=== PATIENT | female | born 1955 | race Caucasian/White ===

== ENCOUNTER → 2020-08-26 09:47 | Outpatient (BNVA) | payer MEDICARE, SELFPAY | PROVIDERS: PCP Family Medicine; Visit Provider Family Medicine | DX: E03.9 Hypothyroidism, unspecified (principal); Z13.6 Encounter for screening for cardiovascular disorders; Z68.1 Body mass index [BMI] 19.9 or less, adult | CPT/HCPCS: 80053; 80061; 84439; 84443; 85025 ==

== ENCOUNTER → 2020-08-28 12:40 | Outpatient (BNVA) | payer MEDICARE, SELFPAY | PROVIDERS: PCP Family Medicine; Visit Provider Family Medicine | DX: R53.1 Weakness (principal) | CPT/HCPCS: 82607 ==

== ENCOUNTER → 2020-10-14 14:51 | Outpatient (BNVA) | payer MEDICARE, SELFPAY | PROVIDERS: PCP Family Medicine; Visit Provider Family Medicine | DX: Z01.419 Encounter for gynecological examination (general) (routine) without abnormal findings (principal) | CPT/HCPCS: 88175 ==

== ENCOUNTER → 2020-12-05 15:43 | Outpatient (BNVA) | payer MEDICARE, SELFPAY | PROVIDERS: PCP Family Medicine; Visit Provider Family Medicine | DX: E03.9 Hypothyroidism, unspecified (principal); Z13.6 Encounter for screening for cardiovascular disorders; R60.9 Edema, unspecified | CPT/HCPCS: 80053; 84439; 84443 ==

== ENCOUNTER → 2020-12-08 14:12 | Outpatient (BNVA) | payer MEDICARE, SELFPAY | PROVIDERS: PCP Family Medicine; Visit Provider Family Medicine | DX: R74.8 Abnormal levels of other serum enzymes (principal) | CPT/HCPCS: 80074 ==

== ENCOUNTER 2021-01-20 10:44 | Outpatient (CLI) | payer MEDICARE, SELFPAY ==
--- NOTE | 2021-01-20 11:00 | US_ITS ---
WS: [id number] RIGHT UPPER QUADRANT ULTRASOUND HISTORY: elevated liver enzymes COMPARISON: None available. Liver: 14.6 cm in length. Normal size liver with mild diffuse coarse echotexture. No mass or bile seth t dilatation. There are a few scattered calcifications within the liver. Portal Vein: Normal monophasic hepatopedal flow. Gallbladder: Normally distended gallbladder with no stones or wall thickening. CBD: 0.4 cm Pancreas: Normal size and echogenicity. Right kidney: 10.2 cm in length. Normal size and echogenicity. No hydronephrosis or mass. Aorta and IVC: Unremarkable abdominal aorta and IVC. No ascites. US/US abdomen limited [id number] IMPRESSION: 1. Normal gallbladder. 2. Mild coarsened echotexture throughout the liver. Correlate for possible cir rhosis with hepatic steatosis. 3. Very tiny amount of perihepatic fluid.
== END 2021-01-20 10:45 | disposition home or self-care (01) ==
LOC: RAD 10:49
PROVIDERS: PCP Family Medicine; Visit Provider Family Medicine
DX: R60.9 Edema, unspecified (principal); R89.9 Unspecified abnormal finding in specimens from other organs, systems and tissues; R74.8 Abnormal levels of other serum enzymes; E03.9 Hypothyroidism, unspecified
CPT/HCPCS: 76705; 84436; 84443

== ENCOUNTER → 2021-01-21 13:01 | Outpatient (BNVA) | payer MEDICARE, SELFPAY | PROVIDERS: PCP Family Medicine; Visit Provider Family Medicine | DX: E03.9 Hypothyroidism, unspecified (principal) | CPT/HCPCS: 84439 ==

== ENCOUNTER 2021-03-06 11:12 | Day surgery (SDC) | payer MEDICARE, SELFPAY ==
[2021-03-04 13:48] VITALS: BMI 18.4
[2021-03-06] VITALS (7 sets, daily range): BP systolic 125–164; BP diastolic 66–89; PULSE 54–78; RESP 12–19; TEMP 36.6; O2SAT 100
[2021-03-06] MEDS: sodium chloride 0.9% 1,000 ML 30 ML IV (11:46)
[2021-03-06 12:09] LABS: INR 0.96 (0.8-1.2)
--- NOTE | 2021-03-06 12:30 | US_ITS ---
WS: [id number] ULTRASOUND GUIDED BIOPSY LIVER HISTORY: abnormal US of Liver, elevated LFTs. Procedure, risks, and complications are explained to the patient. Consent was obtained. Skin is clean sed with ChloraPrep and anesthetized with 1% buffered lidocaine. No mass is identified on today's imaging study. Random liver biopsy is requested. There is no hepatic mass identified. Conscious sedation utilized during this examination. Under sterile conditions axis is achieved into t he RIGHT lobe of the liver using an 18-gauge Achieve needle. 2 biopsies are performed. Specimen is pl aced in formalin for pathology. No complications were encountered. Patient will be observed for 2 funmi rs postprocedure for complications. US/US biopsy liver [id number] IMPRESSION: Uncomplicated random liver biopsy.
[2021-03-06] MEDS: fentaNYL 50 mcg/mL INJ 2mL 25 MCG IVP (12:50)
[2021-03-06] MEDS: midazolam 1 mg/mL INJ 2 mL IVP (12:50)
== END 2021-03-06 15:08 | disposition home or self-care (01) ==
PROVIDERS: PCP Family Medicine; Visit Provider Radiology Diagnostic Radiology
DX: R93.2 Abnormal findings on diagnostic imaging of liver and biliary tract (principal)
CPT/HCPCS: 36415; 47000; 76942; 82105; 82378; 83615; 85610; 88307; 88313; 96375; J2250; J3010; J7030

== ENCOUNTER → 2021-03-31 14:24 | Outpatient (BNVA) | payer MEDICARE, SELFPAY | PROVIDERS: PCP Family Medicine; Visit Provider Family Medicine | DX: R79.89 Other specified abnormal findings of blood chemistry (principal); D50.9 Iron deficiency anemia, unspecified; Z12.11 Encounter for screening for malignant neoplasm of colon | CPT/HCPCS: 80053; 82728; 84466 ==

== ENCOUNTER 2021-05-25 13:10 | Outpatient (CLI) | payer MEDICARE, SELFPAY ==
[2021-05-25 14:00] LABS: Lactate Dehydrogenase 199 U/L (135-214)
[2021-05-25 14:09] LABS: Cancer Antigen 19 9 22.67 U/mL (0-35)
[2021-05-25 21:22] LABS: Carcinoembryonic Antigen 2.7 ng/mL (0.0-4.7); Tumor Marker Alpha Fetoprotein 2.7 ng/mL (0-8.3)
== END 2021-05-25 13:11 | disposition home or self-care (01) ==
PROVIDERS: PCP Family Medicine; Visit Provider Family Medicine
DX: R79.89 Other specified abnormal findings of blood chemistry (principal)
CPT/HCPCS: 82105; 82378; 83615; 86301

== ENCOUNTER → 2021-06-02 14:25 | Outpatient (BNVA) | payer MEDICARE, SELFPAY | PROVIDERS: PCP Family Medicine; Visit Provider Surgery | DX: Z12.11 Encounter for screening for malignant neoplasm of colon (principal) ==

== ENCOUNTER 2021-07-22 05:47 | Day surgery (SDC) | payer MEDICARE, SELFPAY ==
[2021-07-20 10:06] VITALS: BMI 17.7
[2021-07-22 06:08] VITALS: BP 146/92; PULSE 67; RESP 18; TEMP 36.7; O2SAT 100
[2021-07-22] MEDS: sodium chloride 0.9% 1,000 ML 30 ML IV (06:29)
--- NOTE | 2021-07-22 06:57 | ANES.PREANE2 ---
Documented by User: Valentin Marks Jr, CIT[employer] ADMINISTRATOR 07/22/21 07:01 Pre-Anesthetic Assessment Height/Weight: Height 1.7 m Weight 54.431 kg Temp Pulse Resp BP Pulse Ox 98.0 F 67 18 146/92 100 07/22/21 06:08 07/22/21 06:08 07/22/21 06:08 07/22/21 06:08 07/22/21 06:08 Preop Diagnosis: diagnostic Operation Date: 07/22/21 07:30 Proposed Procedures p Colonoscopy 46894/screening for mal remedios of colon Z12.11(Not Applicable) - Vasquez Jackson MD Familial anesthetic complications: none Was Beta Keturah taken within 24 hours: N/A Was Clonidine taken within 24 hours: N/A Last intake: Intake Last Liquid Date 07/21/21 Last Liquid Time 18:00 Last Solid Date 07/21/21 Last Solid Time 07:00 Social No alcohol and No tobacco Exam alert, oriented x 3, clear to auscultation bilaterally and regular rate & rhythm Airway Submandibular: within normal limits Cervical ROM: within normal limits Mallampati: Class I Dentition: full Pulmonary None reported CV/HEM None reported None reported Hepatic None reported GI Gastroesophageal Reflux Disease (occ OTC meds. Food related) Metabolic Thyroid Disease Musc/skel Lower Back Pain Neuropsych None reported Anesthetic Plan ASA status: 1 Anesthesia: MAC Medications/Allergies Home Medications Medication Instructions Recorded Confirmed Last Taken Type prednisone 20 mg tablet 20 mg PO DAILY #4 tab 07/20/21 07/22/21 Unknown Rx levothyroxine 125 mcg tablet 125 mcg PO DAILY 90 Days #90 tab 07/21/21 07/22/21 Unknown Rx Allergies Allergy/AdvReac Type Severity Reaction Status Date / Time No Known Allergies Allergy Verified 07/20/21 14:13 Current Medications Generic Name Dose Route Start Last Admin Trade Name Freq PRN Reason Stop Dose Admin Sodium Chloride 1,000 mls @ 30 mls/hr 07/22/21 06:00 07/22/21 06:29 Sodium Chloride 0.9% IV 07/23/21 05:59 30 mls/hr .Q24H VIKAS Administration PFSH Anesthesia Medical History (Updated 07/20/21 @ 14:32 by Manuel Urbina DO) Acquired hypothyroidism Surgical History (Updated 07/22/21 @ 07:54 by Vasquez Jackson MD) Status post colonoscopy (07/22/21) Family History Family/Other Cancer Mother Cataract Social History Smoking and tobacco status: former smoker Second hand smoke exposure: No Alcohol intake: never Desire information about alcohol rehabilitation?: No Desire information about substance/drug rehabilitation?: No Data Anesthesia Cardiac Studies: No Data to Display Documented by User: Eleanor Levi DO 07/22/21 09:12 Pre-Anesthetic Assessment Other Pertinent Information Supervision by Doctor Kady Medications/Allergies Home Medications Medication Instructions Recorded Confirmed Last Taken Type prednisone 20 mg tablet 20 mg PO DAILY #4 tab 07/20/21 07/22/21 Unknown Rx levothyroxine 125 mcg tablet 125 mcg PO DAILY 90 Days #90 tab 07/21/21 07/22/21 Unknown Rx Allergies Allergy/AdvReac Type Severity Reaction Status Date / Time No Known Allergies Allergy Verified 07/20/21 14:13 [facility] Anesthesia Medical History (Updated 07/20/21 @ 14:32 by Manuel Urbina DO) Acquired hypothyroidism Surgical History (Updated 07/22/21 @ 07:54 by Vasquez Jackson MD) Status post colonoscopy (07/22/21) Family History Family/Other Cancer Mother Cataract Social History Smoking and tobacco status: former smoker Second hand smoke exposure: No Alcohol intake: never Desire information about alcohol rehabilitation?: No Desire information about substance/drug rehabilitation?: No Data Anesthesia Cardiac Studies: No Data to Display
--- NOTE | 2021-07-22 07:06 | W.PM.OPSFHP ---
Same Day Surgery H&P Indication for Procedure/HPI DATE OF PROCEDURE: July 22, 2021 CHIEF COMPLAINT/INDICATIONFOR SURGICAL PROCEDURE: colonoscopy PREOP DIAGNOSIS: diagnostic PLANNED PROCEDURE: Operation Date: 07/22/21 07:30 Proposed Procedures p Colonoscopy 92129/screening for mal remedios of colon Z12.11(Not Applicable) - Vasquez Jackson MD Medications/Allergies* Allergies/Adverse Reactions Allergy/AdvReac Type Severity Reaction Status Date / Time No Known Allergies Allergy Verified 07/20/21 14:13 Current Medications: Generic Name Dose Route Start Last Admin Trade Name Freq PRN Reason Stop Dose Admin Sodium Chloride 1,000 mls @ 30 mls/hr 07/22/21 06:00 07/22/21 06:29 Sodium Chloride 0.9% IV 07/23/21 05:59 30 mls/hr .Q24H VIKAS Administration Pertinent History/Comorbid Conditions* Medical History (Updated 07/20/21 @ 14:32 by Manuel Urbina DO) Acquired hypothyroidism Family History (Updated 08/26/20 @ 09:20 by Lawrence Purvis LPN) Cancer Family/Other Cataract Mother Social History Smoking and tobacco status: former smoker Second hand smoke exposure: No Alcohol intake: never Desire information about alcohol rehabilitation?: No Desire information about substance/drug rehabilitation?: No Pertinent Exam Findings alert, oriented x 3 and regular rate & rhythm Recommendations Surgery/Procedure today Coding Level of Care Code Acute Sample Patternmaker for Abiola Nichols
[2021-07-22 07:54] VITALS: BP 110/69; PULSE 59; RESP 16; TEMP 36.2; O2SAT 100
[2021-07-22 08:04] VITALS: BP 105/66; PULSE 64; RESP 18; O2SAT 99
--- NOTE | 2021-07-22 13:18 | PM.PACU ---
PACU note Narrative: VSS; no issues post procedure.
== END 2021-07-22 08:17 | disposition home or self-care (01) ==
PROVIDERS: PCP Family Medicine; Visit Provider Surgery
PROC: 0DJD8ZZ Inspection of Lower Intestinal Tract, Via Natural or Artificial Opening Endoscopic (ICD-10-PCS; CPT 45378; principal; 2021-07-22 07:30)
DX: Z12.11 Encounter for screening for malignant neoplasm of colon (principal); E03.9 Hypothyroidism, unspecified; Z87.891 Personal history of nicotine dependence
CPT/HCPCS: G0121; J2704; J7030

== ENCOUNTER → 2021-09-04 12:29 | Outpatient (BNVA) | payer MEDICARE, SELFPAY | PROVIDERS: PCP Family Medicine; Visit Provider Family Medicine | DX: E03.9 Hypothyroidism, unspecified (principal); R60.9 Edema, unspecified; R79.89 Other specified abnormal findings of blood chemistry | CPT/HCPCS: 80053; 80061; 84439; 84443; 85025 ==

== ENCOUNTER 2021-09-08 09:05 | Outpatient (CLI) | payer MEDICARE, SELFPAY ==
[2021-09-08 10:13] LABS: Ferritin 10 ng/mL (15-150); Iron 26 ug/dL (37-145); Percent Saturation 7.3 % (20-50); Total Iron Binding Capacity 354 mcg/dl; Unsaturated Iron Binding 328 ug/dL (112-347)
[2021-09-08 10:23] LABS: LAB Peripheral Smear Sent for Review
== END 2021-09-08 09:06 | disposition home or self-care (01) ==
LOC: LAB 09:12
PROVIDERS: PCP Family Medicine; Visit Provider Family Medicine
DX: D50.9 Iron deficiency anemia, unspecified (principal); G25.81 Restless legs syndrome; D70.9 Neutropenia, unspecified
CPT/HCPCS: 36415; 82728; 83540; 83550

== ENCOUNTER 2021-10-12 06:17 | Outpatient (CLI) | payer MEDICARE, SELFPAY ==
--- NOTE | 2021-10-12 07:00 | US_ITS ---
WS: [id number] Complete ABDOMINAL ULTRASOUND HISTORY: anemia COMPARISON: 01/20/2021 Liver: 15.6 cm in length. Liver is normal size. Coarse echotexture throughout the liver. Surface of t he liver is very mildly nodular. There are several small cysts which are benign throughout the liver. No solid mass. Largest cyst measures 12 x 16 x 10 mm. No bile duct dilatation. Normal portal vein. Portal Vein: Patent hepatopedal flow remains normal. Decreasing undulations within the waveform. Gallbladder: Normally distended with no gallstones, wall thickening or pericholecystic fluid. Gallbladder wall thickness: 0.2 cm. Pancreas: Normal size and echogenicity. CBD: 0.2 cm. Right kidney: 9.7 cm x 4.2 cm x 5.7 cm. No mass, cortical thickening or hydronephrosis. Left kidney: 10.6 cm x 4.7 cm x 4.6 cm. No mass, cortical thickening or hydronephrosis. Spleen: Normal size and echogenicity. Abdominal aorta and IVC are within normal limits. No ascites. US/US abdomen complete* [id number] IMPRESSION: 1. Cirrhotic appearing liver with hepatic cysts. No solid mass. 2. Normal gallbladder. 3. No biliary duct dilatation. 4. Normal size spleen.
== END 2021-10-12 06:18 | disposition home or self-care (01) ==
LOC: RAD 06:18
PROVIDERS: PCP Family Medicine; Visit Provider Family Medicine
DX: D64.9 Anemia, unspecified
CPT/HCPCS: 76700

== ENCOUNTER 2021-10-21 11:21 | Oncology outpatient (recurring) (ONCR) | payer MEDICARE, SELFPAY ==
[2021-10-21 12:26] LABS: Basophils % 0.7 %; Hematocrit 42.3 % (37.0-47.0); Lymphocytes # 1.7 10^3/uL (0.8-4.8); Lymphocytes % 54.7 %; Mean Corpuscular HGB Conc 30.7 g/dL (30.0-36.0); Mean Corpuscular Hemoglobin 27.9 pg (28.0-34.0); Mean Corpuscular Volume 90.8 fl (81-99); Mean Platelet Volume 9.4 fL (7.4-10.4); Monocytes # 0.2 10^3/uL (0.2-0.9); Monocytes % 7.2 %; Neutrophils # 1.15 10^3/uL (1.8-7.7); Neutrophils % 37.4 %; Nucleated Red Blood Cells % 0 %; Platelet Count 406 10^3/cmm (130-400); Red Blood Count 4.66 10^6/uL (4.1-5.3); Red Cell Distribution Width 19.5 % (12.1-15.1); White Blood Count 3.1 10^3/uL (4.0-10.0)
== END 2021-11-13 23:59 | disposition home or self-care (01) ==
PROVIDERS: PCP Family Medicine; Visit Provider Internal Medicine Hematology & Oncology
DX: D61.818 Other pancytopenia (principal); D75.839 Thrombocytosis, unspecified; D50.9 Iron deficiency anemia, unspecified; Z79.899 Other long term (current) drug therapy
CPT/HCPCS: 36415; 85025; 99204

== ENCOUNTER → 2021-11-18 08:01 | Outpatient (BNVA) | payer MEDICARE, SELFPAY | PROVIDERS: PCP Family Medicine; Visit Provider Surgery | DX: D50.9 Iron deficiency anemia, unspecified (principal) | CPT/HCPCS: 99213 ==

== ENCOUNTER 2021-11-19 08:00 | Oncology outpatient (recurring) (ONCR) | payer MEDICARE, SELFPAY ==
[2021-11-19 08:31] LABS: Basophils % 0.6 %; Eosinophils % 0.6 %; Hematocrit 37.2 % (37.0-47.0); Hemoglobin 11.7 g/dL (11.5-15.3); Lymphocytes # 1.1 10^3/uL (0.8-4.8); Lymphocytes % 35.7 %; Mean Corpuscular HGB Conc 31.5 g/dL (30.0-36.0); Mean Corpuscular Hemoglobin 29.4 pg (28.0-34.0); Mean Corpuscular Volume 93.5 fl (81-99); Mean Platelet Volume 9.4 fL (7.4-10.4); Monocytes # 0.3 10^3/uL (0.2-0.9); Monocytes % 8.9 %; Neutrophils % 54.2 %; Nucleated Red Blood Cells % 0 %; Platelet Count 340 10^3/cmm (130-400); Red Blood Count 3.98 10^6/uL (4.1-5.3); Red Cell Distribution Width 17.9 % (12.1-15.1); White Blood Count 3.1 10^3/uL (4.0-10.0)
[2021-11-19 09:02] LABS: Ferritin 35 ng/mL (15-150); Iron 70 ug/dL (37-145); Total Iron Binding Capacity 250 mcg/dl; Unsaturated Iron Binding 180 ug/dL (112-347)
[2021-11-19 09:32] LABS: Vitamin B12 > 2000 pg/mL (232-1245)
== END 2021-12-14 23:59 | disposition home or self-care (01) ==
PROVIDERS: PCP Family Medicine; Visit Provider Internal Medicine Hematology & Oncology
DX: D61.818 Other pancytopenia (principal); D75.839 Thrombocytosis, unspecified; D50.9 Iron deficiency anemia, unspecified; Z79.899 Other long term (current) drug therapy
CPT/HCPCS: 82607; 82728; 83540; 83550; 85025; 99214

== ENCOUNTER 2021-11-27 06:09 | Day surgery (SDC) | payer MEDICARE, SELFPAY ==
[2021-11-24 12:16] VITALS: BMI 18.4
--- NOTE | 2021-11-27 06:26 | W.PM.OPSUD ---
Surgery/Procedure H&P Update DATE OF PROCEDURE: November 27, 2021 DATE H&P PERFORMED: 11/18/21 H&P UPDATE INFORMATION: I have reviewed H&P completed within last 30 days, I have examined patient prior to procedure and No changes to prior documentation PREOP DIAGNOSIS: Iron deficiency anemia PRIMARY INDICATION FOR PROCEDURE: The same PLANNED PROCEDURE: Operation Date: 11/27/21 07:30 Proposed Procedures p EGD 85311 D50.90(Not Applicable) - Redd Masterson MD
[2021-11-27 06:35] VITALS: BP 158/87; PULSE 64; RESP 18; TEMP 36.3; O2SAT 100
[2021-11-27] MEDS: sodium chloride 0.9% 1,000 ML 30 ML IV (06:45)
--- NOTE | 2021-11-27 07:11 | ANES.PREANE2 ---
Pre-Anesthetic Assessment Height/Weight: Height 1.75 m Weight 56.699 kg Temp Pulse Resp BP Pulse Ox O2 Del Method 97.4 F L 64 18 158/87 100 11/27/21 06:35 11/27/21 06:35 11/27/21 06:35 11/27/21 06:35 11/27/21 06:35 11/27/21 06:35 Preop Diagnosis: Iron deficiency anemia Operation Date: 11/27/21 07:30 Proposed Procedures p EGD 68447 D50.90(Not Applicable) - Redd Masterson MD Was Beta Keturah taken within 24 hours: N/A Was Clonidine taken within 24 hours: N/A Last intake: Intake Last Liquid Date 11/26/21 Last Liquid Time 22:00 Last Solid Date 11/26/21 Last Solid Time 22:00 Social No alcohol and No tobacco Exam alert, oriented x 3, clear to auscultation bilaterally and regular rate & rhythm Airway Submandibular: within normal limits Cervical ROM: within normal limits Mallampati: Class II Dentition: full History/ROS No significant history except as noted and No significant complaints Pulmonary None reported CV/HEM Anemia None reported Hepatic None reported GI None reported Metabolic Thyroid Disease [facility] None reported Neuropsych None reported Anesthetic Plan ASA status: 2 Anesthesia: Anesthesia Evaluation and MAC Risk of > 500 ml blood loss (7ml/kg in children): No Medications/Allergies Home Medications Medication Instructions Recorded Confirmed Last Taken Type levothyroxine 125 mcg tablet 125 mcg PO DAILY 90 days #90 tabs 09/07/21 11/24/21 11/26/21 Rx ferrous sulfate 325 mg (65 mg 325 mg PO BID #60 tabs 09/11/21 11/24/21 11/26/21 Rx iron) tablet (Feosol) magnesium 200 mg tablet 400 mg PO BID 10/21/21 11/24/21 11/26/21 History zinc acetate 50 mg (zinc) capsule 50 mg PO DAILY 10/21/21 11/24/21 11/26/21 History (Galzin) cyanocobalamin (vitamin B-12) 3,000 mcg PO DAILY 11/18/21 11/24/21 11/26/21 History 3,000 mcg capsule Allergies Allergy/AdvReac Type Severity Reaction Status Date / Time No Known Allergies Allergy Verified 11/24/21 12:15 Current Medications Generic Name Dose Route Start Last Admin Trade Name Freq PRN Reason Stop Dose Admin Sodium Chloride 1,000 mls @ 30 mls/hr 11/27/21 06:30 11/27/21 06:45 Sodium Chloride 0.9% IV 11/28/21 06:29 30 mls/hr .Q24H VIKAS Administration PFSH Anesthesia Medical History Acquired hypothyroidism Bicytopenia Pancytopenia Surgical History Status post colonoscopy (07/22/21) Family History Family/Other Cancer Mother Cataract Hypertension Grandfather No problems noted. Denies family history of Diabetes CAD (coronary artery disease) Clotting disorder Dementia Hyperlipidemia Psychiatric illness Chronic kidney disease (CKD) Suicide Anesthesia complication Bleeding disorder Lung disease Stroke Social History Smoking and tobacco status: former smoker (smoked x 20 years) Second hand smoke exposure: No Alcohol intake: never Desire information about alcohol rehabilitation?: No Desire information about substance/drug rehabilitation?: No Data Anesthesia Cardiac Studies: No Data to Display
[2021-11-27 07:58] VITALS: BP 122/97; PULSE 73; RESP 20; TEMP 36.2; O2SAT 93
[2021-11-27] MEDS: EPINEPHrine 1 mg/mL INJ XX (07:58)
[2021-11-27 08:10] VITALS: BP 135/84; PULSE 65; RESP 18; O2SAT 98
--- NOTE | 2021-11-27 13:28 | ANE.PACU2 ---
Inpatient post-anesthesia follow up: Airway intact: Yes Vital signs: Temperature 97.1 F Pulse Rate 65 Respiratory Rate 18 Blood Pressure 135/84 Pulse Oximetry 98 Oxygen Delivery Me thod Room Air Oxygen Flow Rate Fraction of Inspir ed Oxygen Hydration adequate: Yes Nausea and vomiting: No Pain level: 1 Mental status: Baseline
== END 2021-11-27 08:34 | disposition home or self-care (01) ==
PROVIDERS: PCP Family Medicine; Visit Provider Surgery
PROC: 0DJ08ZZ Inspection of Upper Intestinal Tract, Via Natural or Artificial Opening Endoscopic (ICD-10-PCS; CPT 43235; principal; 2021-11-27 07:30)
DX: D50.9 Iron deficiency anemia, unspecified (principal); K21.00 Gastro-esophageal reflux disease with esophagitis, without bleeding; E03.9 Hypothyroidism, unspecified; Z87.891 Personal history of nicotine dependence
CPT/HCPCS: 43239; 88305; J0171; J2704; J7030

== ENCOUNTER → 2021-12-09 08:05 | Outpatient (BNVA) | payer MEDICARE, SELFPAY | PROVIDERS: PCP Family Medicine; Visit Provider Surgery | DX: Z09 Encounter for follow-up examination after completed treatment for conditions other than malignant neoplasm (principal); K20.90 Esophagitis, unspecified without bleeding; K25.9 Gastric ulcer, unspecified as acute or chronic, without hemorrhage or perforation | CPT/HCPCS: 99213 ==

== ENCOUNTER 2021-12-17 08:47 | Outpatient (CLI) | payer MEDICARE, SELFPAY ==
--- NOTE | 2021-12-17 08:54 | XR_ITS ---
WS: [id number] Lumbar spine, 3 views, 12/17/2021 Clinical Data: chronic low back pain Comparison: None. Findings: No compression fractures or subluxation is seen. Degenerative disc narrowing at L4-L5 and L5-S1 is se en. There is anterior spurring from L1 through L3. Osteoporosis is present.. The transverse processes and SI joints are normal. There is a minimal dextroscoliosis. There is a large amount of fecal material in the colon. XR/XR lumbar spine 2-3V* [id number] Impression: 1. Degenerative disc narrowing at L4-L5 and L5-S1. 2. Anterior spurring L1-L3 along with osteoporosis. 3. Dextroscoliosis.
== END 2021-12-17 08:48 | disposition home or self-care (01) ==
LOC: RAD 08:49
PROVIDERS: PCP Family Medicine; Visit Provider Family Medicine
DX: M54.41 Lumbago with sciatica, right side (principal); G89.29 Other chronic pain; M48.07 Spinal stenosis, lumbosacral region; M81.0 Age-related osteoporosis without current pathological fracture; M41.9 Scoliosis, unspecified
CPT/HCPCS: 72100

== ENCOUNTER 2021-12-18 07:52 | Oncology outpatient (recurring) (ONCR) | payer MEDICARE, SELFPAY ==
[2021-12-18 08:32] LABS: Basophils % 0.7 %; Eosinophils % 0.7 %; Hematocrit 38.8 % (37.0-47.0); Hemoglobin 11.9 g/dL (11.5-15.3); Lymphocytes # 1.3 10^3/uL (0.8-4.8); Lymphocytes % 45.7 %; Mean Corpuscular HGB Conc 30.7 g/dL (30.0-36.0); Mean Corpuscular Hemoglobin 29.2 pg (28.0-34.0); Mean Corpuscular Volume 95.1 fl (81-99); Mean Platelet Volume 9.2 fL (7.4-10.4); Monocytes # 0.2 10^3/uL (0.2-0.9); Monocytes % 7.9 %; Neutrophils # 1.24 10^3/uL (1.8-7.7); Neutrophils % 44.6 %; Nucleated Red Blood Cells % 0 %; Platelet Count 306 10^3/cmm (130-400); Red Blood Count 4.08 10^6/uL (4.1-5.3); Red Cell Distribution Width 16.1 % (12.1-15.1); White Blood Count 2.8 10^3/uL (4.0-10.0)
[2021-12-18 08:59] LABS: Ferritin 33 ng/mL (15-150); Iron 115 ug/dL (37-145); Percent Saturation 48.5 % (20-50); Total Iron Binding Capacity 237 mcg/dl; Unsaturated Iron Binding 122 ug/dL (112-347)
== END 2022-01-13 23:59 | disposition home or self-care (01) ==
PROVIDERS: PCP Family Medicine; Visit Provider Internal Medicine Hematology & Oncology
DX: D75.839 Thrombocytosis, unspecified (principal); D50.9 Iron deficiency anemia, unspecified; Z79.899 Other long term (current) drug therapy; D75.89 Other specified diseases of blood and blood-forming organs; D72.819 Decreased white blood cell count, unspecified; K25.9 Gastric ulcer, unspecified as acute or chronic, without hemorrhage or perforation; M54.30 Sciatica, unspecified side
CPT/HCPCS: 82728; 83540; 83550; 85025; 99214

== ENCOUNTER → 2022-01-14 09:21 | Outpatient (BNVA) | payer MEDICARE, SELFPAY | PROVIDERS: PCP Family Medicine; Visit Provider Anesthesiology Pain Medicine | DX: G89.29 Other chronic pain (principal); M51.16 Intervertebral disc disorders with radiculopathy, lumbar region; M47.816 Spondylosis without myelopathy or radiculopathy, lumbar region; M79.604 Pain in right leg; M79.605 Pain in left leg; Z87.891 Personal history of nicotine dependence | CPT/HCPCS: 99204 ==

== ENCOUNTER 2022-01-20 05:36 | Day surgery (SDC) | payer MEDICARE, SELFPAY ==
[2022-01-18 10:48] VITALS: BMI 18.2
[2022-01-20 06:02] VITALS: BP 142/93; PULSE 73; RESP 18; TEMP 36.6; O2SAT 100
[2022-01-20] MEDS: sodium chloride 0.9% 1,000 ML 30 ML IV (06:09)
--- NOTE | 2022-01-20 06:16 | W.PM.OPSFHP ---
Same Day Surgery H&P Indication for Procedure/HPI DATE OF PROCEDURE: January 20, 2022 CHIEF COMPLAINT/INDICATIONFOR SURGICAL PROCEDURE: Here for EGD PREOP DIAGNOSIS: History of gastric ulcers PLANNED PROCEDURE: Operation Date: 01/20/22 07:00 Proposed Procedures p EGD 23746,K25.9(Not Applicable) - Redd Masterson MD 12/09/2021 Patient comes today status post diagnostic EGD and was found to have multiple gastric ulcers and was placed on Carafate and has been on PPI but I did increase the dose to 40 mg twice daily pantoprazole.? Patient has history of iron deficiency anemia.? And there was residual blood at the fundus of the stomach likely the source of the gastric ulcer, patient reports to me that she has been taking quite a bit of NSAIDs at some point and likely that is the cause of her ulcers. Biopsy was obtained from the antrum and did show A.? Stomach, antrum , biopsy: ? Reactive gastropathy. ? No H. pylori-like organisms identified. ? No intestinal metaplasia or dysplasia identified. 01/20/2022 Patient comes today for repeat EGD as a follow-up ROS All systems have been reviewed negative except as for the above or per problem list. Medications/Allergies* Home Medications Medication Instructions Recorded Confirmed Type magnesium 200 mg tablet 400 mg PO BID 10/21/21 01/20/22 History zinc acetate 50 mg (zinc) capsule 50 mg PO DAILY 10/21/21 01/20/22 History (Galzin) cyanocobalamin (vitamin B-12) 3,000 mcg PO DAILY 11/18/21 01/20/22 History 3,000 mcg capsule ascorbate calcium (vitamin C) 500 600 mg PO DAILY 01/14/22 01/20/22 History mg tablet cholecalciferol (vitamin D3) 125 125 mcg PO DAILY 01/14/22 01/20/22 History mcg (5,000 unit) capsule IRON 65MG TAB 65 mg PO BID 01/18/22 01/20/22 History Allergies/Adverse Reactions Allergy/AdvReac Type Severity Reaction Status Date / Time No Known Allergies Allergy Verified 01/20/22 06:17 Current Medications: Generic Name Dose Route Start Last Admin Trade Name Freq PRN Reason Stop Dose Admin Sodium Chloride 1,000 mls @ 30 mls/hr 01/20/22 06:00 01/20/22 06:09 Sodium Chloride 0.9% IV 01/21/22 05:59 30 mls/hr .Q24H VIKAS Administration Pertinent History/Comorbid Conditions* Medical History (Updated 01/15/22 @ 09:15 by Camille Zamora DO) Acquired hypothyroidism Bicytopenia Gastritis Pancytopenia Surgical History (Updated 12/18/21 @ 06:45 by Camille Zamora DO) History of esophagogastroduodenoscopy (EGD) History of left knee surgery History of tonsillectomy Status post colonoscopy (07/22/21) Family History (Updated 10/21/21 @ 12:48 by Fay Saucedo LPN) Cancer Family/Other Cataract Mother Hypertension Mother Denies family history of Diabetes CAD (coronary artery disease) Clotting disorder Dementia Hyperlipidemia Psychiatric illness Chronic kidney disease (CKD) Suicide Anesthesia complication Bleeding disorder Lung disease Stroke Social History Smoking and tobacco status: former smoker (smoked x 20 years) Second hand smoke exposure: No Alcohol intake: never Desire information about alcohol rehabilitation?: No Desire information about substance/drug rehabilitation?: No Pertinent Exam Findings alert, oriented x 3, regular rate & rhythm and procedure specific exam findings (Abdominal exam nontender nondistended soft) Recommendations Surgery/Procedure today (EGD with possible biopsy) Coding Level of Care Code Acute Zigzag Machine Operator for Abiola Nichols
--- NOTE | 2022-01-20 06:53 | ANES.PREANE2 ---
Pre-Anesthetic Assessment Height/Weight: Height 1.73 m Weight 54.431 kg Temp Pulse Resp BP Pulse Ox 97.8 F 73 18 142/93 100 01/20/22 06:02 01/20/22 06:02 01/20/22 06:02 01/20/22 06:02 01/20/22 06:02 Preop Diagnosis: History of gastric ulcers Operation Date: 01/20/22 07:00 Proposed Procedures p EGD 45976,K25.9(Not Applicable) - Redd Masterson MD Familial anesthetic complications: none Was Beta Keturah taken within 24 hours: N/A Was Clonidine taken within 24 hours: N/A Last intake: Intake Last Liquid Date 01/19/22 Last Liquid Time 19:00 Last Solid Date 01/19/22 Last Solid Time 19:00 Last Intake: 19:00 Social No alcohol and No tobacco Exam alert, oriented x 3, clear to auscultation bilaterally and regular rate & rhythm Airway Submandibular: within normal limits Cervical ROM: within normal limits Mallampati: Class I Dentition: full Pulmonary None reported CV/HEM None reported None reported Hepatic None reported GI Gastroesophageal Reflux Disease and Peptic Ulcer Disease Metabolic Thyroid Disease [facility] Lower Back Pain and Osteoarthritis/DJD Neuropsych None reported Anesthetic Plan ASA status: 2 Anesthesia: MAC Medications/Allergies Home Medications Medication Instructions Recorded Confirmed Last Taken Type levothyroxine 125 mcg tablet 125 mcg PO DAILY 90 days #90 tabs 09/07/21 01/20/22 01/20/22 Rx magnesium 200 mg tablet 400 mg PO BID 10/21/21 01/20/22 01/19/22 History zinc acetate 50 mg (zinc) capsule 50 mg PO DAILY 10/21/21 01/20/22 01/19/22 History (Galzin) cyanocobalamin (vitamin B-12) 3,000 mcg PO DAILY 11/18/21 01/20/22 01/19/22 History 3,000 mcg capsule pantoprazole 40 mg tablet,delayed 40 mg PO BID 30 days #60 tabs 11/27/21 01/20/22 01/19/22 Rx release (Protonix) sucralfate 1 gram tablet (Carafate) 1 g PO Q6H 8 weeks #224 tabs 11/30/21 01/20/22 01/19/22 Rx gabapentin 600 mg tablet 600 mg PO TID #90 tabs 01/12/22 01/20/22 01/19/22 Rx ascorbate calcium (vitamin C) 500 600 mg PO DAILY 01/14/22 01/20/22 01/19/22 History mg tablet cholecalciferol (vitamin D3) 125 125 mcg PO DAILY 01/14/22 01/20/22 01/19/22 History mcg (5,000 unit) capsule hydrocodone 5 mg-acetaminophen 325 1 tab PO BID PRN pain 7 days #60 01/15/22 01/20/22 01/19/22 Rx mg tablet tabs IRON 65MG TAB 65 mg PO BID 01/18/22 01/20/22 01/19/22 History Allergies Allergy/AdvReac Type Severity Reaction Status Date / Time No Known Allergies Allergy Verified 01/20/22 06:17 Current Medications Generic Name Dose Route Start Last Admin Trade Name Freq PRN Reason Stop Dose Admin Sodium Chloride 1,000 mls @ 30 mls/hr 01/20/22 06:00 01/20/22 06:09 Sodium Chloride 0.9% IV 01/21/22 05:59 30 mls/hr .Q24H VIKAS Administration PFSH Anesthesia Medical History Acquired hypothyroidism Bicytopenia Gastritis Pancytopenia Surgical History History of esophagogastroduodenoscopy (EGD) History of left knee surgery History of tonsillectomy Status post colonoscopy (07/22/21) Family History Family/Other Cancer Mother Cataract Hypertension Grandfather No problems noted. Denies family history of Diabetes CAD (coronary artery disease) Clotting disorder Dementia Hyperlipidemia Psychiatric illness Chronic kidney disease (CKD) Suicide Anesthesia complication Bleeding disorder Lung disease Stroke Social History Smoking and tobacco status: former smoker (smoked x 20 years) Second hand smoke exposure: No Alcohol intake: never Desire information about alcohol rehabilitation?: No Desire information about substance/drug rehabilitation?: No Data Anesthesia Cardiac Studies: No Data to Display
[2022-01-20 07:16] VITALS: BP 148/88; PULSE 81; RESP 16; TEMP 36.4; O2SAT 97
[2022-01-20 07:25] VITALS: BP 132/90; PULSE 67; RESP 18; O2SAT 97
--- NOTE | 2022-01-20 11:57 | ANE.PACU2 ---
Inpatient post-anesthesia follow up: Airway intact: Yes Vital signs: Temperature 97.5 F Pulse Rate 67 Respiratory Rate 18 Blood Pressure 132/90 Pulse Oximetry 97 Oxygen Delivery Me thod Room Air Oxygen Flow Rate 4 Fraction of Inspir ed Oxygen Hydration adequate: Yes Nausea and vomiting: No Pain level: 1 Mental status: Baseline
== END 2022-01-20 07:48 | disposition home or self-care (01) ==
PROVIDERS: PCP Family Medicine; Visit Provider Surgery
PROC: 0DJ08ZZ Inspection of Upper Intestinal Tract, Via Natural or Artificial Opening Endoscopic (ICD-10-PCS; CPT 43235; principal; 2022-01-20 07:00)
DX: Z87.11 Personal history of peptic ulcer disease (principal); K21.00 Gastro-esophageal reflux disease with esophagitis, without bleeding; K29.80 Duodenitis without bleeding; K29.50 Unspecified chronic gastritis without bleeding; B96.81 Helicobacter pylori [H. pylori] as the cause of diseases classified elsewhere
CPT/HCPCS: 43239; 88305; 88342; J2704; J7030

== ENCOUNTER 2022-01-26 12:22 | Outpatient (CLI) | payer MEDICARE, SELFPAY ==
--- NOTE | 2022-01-26 13:00 | XR_ITS ---
WS: [id number] DEXA (DUAL ENERGY X-RAY ABSORPTIOMETRY) Bone mineral density was performed using a [employer] machine. HISTORY: evaluate osteoporosis COMPARISON: None available. Lumbar spine BMD (L1-L4): 0.853 g/cm2 T score: -2.7 Z score: -0.8 Total hip BMD: Left: 0.497 g/cm2. T score: -4.1 Z score: -2.6 Right: 0.574 g/cm2. T score: -3.4 Z score: -2.0 10 year probability of a major osteoporotic fracture is 48.2%. XR/XR DEXA axial skeleton* [id number] IMPRESSION: OSTEOPOROSIS based upon the WHO classification for females.
== END 2022-01-26 12:23 | disposition home or self-care (01) ==
LOC: RAD 12:22
PROVIDERS: PCP Family Medicine; Visit Provider Family Medicine
DX: Z13.820 Encounter for screening for osteoporosis (principal); M81.0 Age-related osteoporosis without current pathological fracture
CPT/HCPCS: 77080

== ENCOUNTER → 2022-01-27 10:26 | Outpatient (BNVA) | payer MEDICARE, SELFPAY | PROVIDERS: PCP Family Medicine; Visit Provider Surgery | DX: Z09 Encounter for follow-up examination after completed treatment for conditions other than malignant neoplasm (principal); A04.8 Other specified bacterial intestinal infections | CPT/HCPCS: 99212 ==

== ENCOUNTER → 2022-02-01 14:18 | Outpatient (BNVA) | payer MEDICARE, SELFPAY | PROVIDERS: PCP Family Medicine; Visit Provider Anesthesiology Pain Medicine | DX: M47.816 Spondylosis without myelopathy or radiculopathy, lumbar region (principal); M54.16 Radiculopathy, lumbar region | CPT/HCPCS: 64483; 64484; J1100; J3490 ==

== ENCOUNTER 2022-02-17 06:49 | Outpatient (CLI) | payer MEDICARE, SELFPAY ==
--- NOTE | 2022-02-17 07:15 | MR_ITS ---
WS: [id number] MRI LUMBAR SPINE NONCONTRAST TECHNIQUE: Sagittal T1, T2 and STIR imaging. Axial T1 and T2 imaging. CLINICAL INFORMATION: M47.816 - Spondylosis without myelopathy or radiculopathy... COMPARISON: None. FINDINGS: Mild lumbar curve. No acute compression. Slight retrolisthesis L4 on L5 with advanced endplate degene rative changes at this level with edema. Severe central canal stenosis at this level due to disc bulg ing in combination with facet arthropathy and ligamentum flavum hypertrophy. Small central disc protr usions in the cervical spine at C3-C6 with mild central canal stenosis and slight indentation on cerv ical cord. Diffuse heterogeneous bone marrow signal throughout the visualized bony structures can be seen with r ed marrow re-conversion associated with cigarette smoking, diabetes, and chronic anemia. L1-L2: Mild annular bulging. Impingement LEFT subarticular recess. Mild facet arthropathy. Mild LEFT foraminal narrowing. L2-L3: Mild annular bulging. Impingement on the RIGHT subarticular recess and traversing RIGHT L3 ner ve root. Mild facet arthropathy. Mild bilateral foraminal narrowing RIGHT greater than LEFT. Mild guerita tral canal stenosis. L3-L4: Mild disc bulging with moderate central canal stenosis. Impingement traversing L4 nerve roots bilaterally. Moderate facet arthropathy. Small facet effusions. LEFT foraminal protrusion impinges th e exiting LEFT L3 nerve root with moderate LEFT foraminal narrowing. LEFT eccentric annular tear. L4-L5: Severe central canal stenosis due to slight retrolisthesis in combination with facet arthropat hy and ligamentum flavum hypertrophy. Endplate edema at this level with disc desiccation. Impingement traversing L5 nerve roots. Moderate RIGHT foraminal narrowing impinges the exiting RIGHT L5 nerve ro ot. Mild LEFT foraminal narrowing. L5-S1: Mild annular bulging. Tiny shallow central protrusion. Slight encroachment on the traversing S 1 nerve roots LEFT greater than RIGHT. Mild facet arthropathy. Mild LEFT foraminal narrowing. RIGHT f oramen is patent. Visualized pelvic bony structures: Normal. Paravertebral soft tissues: Normal. MR/MR lumbar spine wo con* [id number] IMPRESSION: 1. Mild lumbar curve. No acute compression. 2. Severe central canal stenosis L4-L5 with slight retrolisthesis and impingem ent traversing L5 nerve roots bilaterally. 3. Moderate central canal stenosis L3-L4 impinges the traversing L4 nerve root s bilaterally. 4. Mild central canal stenosis L2-L3 with impingement traversing RIGHT L3 nerv e root. 5. LEFT foraminal protrusion L3-L4 with a small annular tear impinges the exit ing LEFT L3 nerve root with moderate LEFT foraminal narrowing. 6. Moderate RIGHT L4-L5 foraminal narrowing impinges the exiting RIGHT L4 nerv e root. 7. Small facet effusions RIGHT L3-L4 and RIGHT L4-L5. Small amount of periarti cular edema about the RIGHT L4-L5 facet can be seen with synovitis, degenerativ e change, or instability. 8. Replacement of the normal fatty bone marrow signal can be seen with red mar row re-conversion described above.
== END 2022-02-17 06:50 | disposition home or self-care (01) ==
PROVIDERS: PCP Family Medicine; Visit Provider Anesthesiology Pain Medicine
DX: M47.816 Spondylosis without myelopathy or radiculopathy, lumbar region (principal); M48.061 Spinal stenosis, lumbar region without neurogenic claudication; M51.26 Other intervertebral disc displacement, lumbar region; R60.0 Localized edema
CPT/HCPCS: 72148

== ENCOUNTER → 2022-02-23 09:23 | Outpatient (BNVA) | payer MEDICARE, SELFPAY | PROVIDERS: PCP Family Medicine; Visit Provider Anesthesiology Pain Medicine | DX: G89.29 Other chronic pain (principal); M51.16 Intervertebral disc disorders with radiculopathy, lumbar region; M47.816 Spondylosis without myelopathy or radiculopathy, lumbar region; M79.604 Pain in right leg; M79.605 Pain in left leg | CPT/HCPCS: 99214 ==

== ENCOUNTER 2022-02-26 08:03 | Oncology outpatient (recurring) (ONCR) | payer MEDICARE, SELFPAY ==
[2022-02-26 09:01] LABS: Basophils % 0.6 %; Eosinophils # 0.1 10^3/uL (0.0-0.8); Eosinophils % 1.4 %; Hematocrit 39.6 % (37.0-47.0); Hemoglobin 12.4 g/dL (11.5-15.3); Lymphocytes # 1.6 10^3/uL (0.8-4.8); Lymphocytes % 44.7 %; Mean Corpuscular HGB Conc 31.3 g/dL (30.0-36.0); Mean Corpuscular Hemoglobin 31.6 pg (28.0-34.0); Mean Platelet Volume 8.8 fL (7.4-10.4); Monocytes # 0.3 10^3/uL (0.2-0.9); Monocytes % 8.6 %; Neutrophils # 1.54 10^3/uL (1.8-7.7); Neutrophils % 44.4 %; Nucleated Red Blood Cells % 0 %; Platelet Count 364 10^3/cmm (130-400); Red Blood Count 3.92 10^6/uL (4.1-5.3); Red Cell Distribution Width 13.9 % (12.1-15.1); White Blood Count 3.5 10^3/uL (4.0-10.0)
[2022-02-26 09:25] LABS: Ferritin 56 ng/mL (15-150); Iron 93 ug/dL (37-145); Percent Saturation 39.5 % (20-50); Total Iron Binding Capacity 235 mcg/dl; Unsaturated Iron Binding 142 ug/dL (112-347)
[2022-02-26 09:43] LABS: Vitamin B12 > 2000 pg/mL (232-1245)
== END 2022-03-16 23:59 | disposition home or self-care (01) ==
PROVIDERS: PCP Family Medicine; Visit Provider Internal Medicine Hematology & Oncology
DX: D50.9 Iron deficiency anemia, unspecified; D75.89 Other specified diseases of blood and blood-forming organs; D75.839 Thrombocytosis, unspecified; K25.9 Gastric ulcer, unspecified as acute or chronic, without hemorrhage or perforation; Z79.899 Other long term (current) drug therapy
CPT/HCPCS: 36415; 82607; 82728; 83540; 83550; 85025; 99214

== ENCOUNTER → 2022-03-02 09:58 | Outpatient (BNVA) | payer MEDICARE, SELFPAY | PROVIDERS: PCP Family Medicine; Visit Provider Anesthesiology Pain Medicine | DX: G89.29 Other chronic pain (principal); M51.16 Intervertebral disc disorders with radiculopathy, lumbar region; M47.816 Spondylosis without myelopathy or radiculopathy, lumbar region; M79.604 Pain in right leg; M79.605 Pain in left leg | CPT/HCPCS: 99213 ==

== ENCOUNTER → 2022-03-15 08:42 | Outpatient (BNVA) | payer MEDICARE, SELFPAY | PROVIDERS: PCP Family Medicine; Visit Provider Anesthesiology Pain Medicine | DX: M51.16 Intervertebral disc disorders with radiculopathy, lumbar region (principal) | CPT/HCPCS: 64493; 64494; 64495; J3490 ==

== ENCOUNTER → 2022-03-30 08:46 | Outpatient (BNVA) | payer MEDICARE, SELFPAY | PROVIDERS: PCP Family Medicine; Visit Provider Anesthesiology Pain Medicine | DX: G89.29 Other chronic pain (principal); M51.16 Intervertebral disc disorders with radiculopathy, lumbar region; M47.816 Spondylosis without myelopathy or radiculopathy, lumbar region | CPT/HCPCS: 99214 ==

== ENCOUNTER → 2022-04-15 13:57 | Outpatient (BNVA) | payer MEDICARE, SELFPAY | PROVIDERS: PCP Family Medicine; Visit Provider Anesthesiology Pain Medicine | DX: M54.16 Radiculopathy, lumbar region (principal) | CPT/HCPCS: 64635; 64636; J1030 ==

== ENCOUNTER → 2022-04-26 09:43 | Outpatient (BNVA) | payer MEDICARE, SELFPAY | PROVIDERS: PCP Family Medicine; Visit Provider Family Medicine | DX: D50.9 Iron deficiency anemia, unspecified (principal); E03.9 Hypothyroidism, unspecified; Z13.6 Encounter for screening for cardiovascular disorders | CPT/HCPCS: 80053; 82728; 83550; 84439; 84443; 85025 ==

== ENCOUNTER → 2022-05-04 15:27 | Outpatient (BNVA) | payer MEDICARE, SELFPAY | PROVIDERS: PCP Family Medicine; Visit Provider Anesthesiology Pain Medicine | DX: M47.816 Spondylosis without myelopathy or radiculopathy, lumbar region (principal) | CPT/HCPCS: 64635; 64636; J1030 ==

== ENCOUNTER → 2022-05-18 10:23 | Outpatient (BNVA) | payer MEDICARE, SELFPAY | PROVIDERS: PCP Family Medicine; Visit Provider Anesthesiology Pain Medicine | DX: G89.29 Other chronic pain (principal); M51.16 Intervertebral disc disorders with radiculopathy, lumbar region; M47.816 Spondylosis without myelopathy or radiculopathy, lumbar region | CPT/HCPCS: 99213 ==

== ENCOUNTER → 2022-06-15 07:39 | Outpatient (BNVA) | payer MEDICARE, SELFPAY | PROVIDERS: PCP Family Medicine; Visit Provider Family Medicine Adult Medicine | DX: R39.9 Unspecified symptoms and signs involving the genitourinary system (principal); N39.0 Urinary tract infection, site not specified | CPT/HCPCS: 81000 ==

== ENCOUNTER → 2022-07-20 10:09 | Outpatient (BNVA) | payer MEDICARE, SELFPAY | PROVIDERS: PCP Family Medicine; Visit Provider Anesthesiology Pain Medicine | DX: G89.29 Other chronic pain (principal); M51.16 Intervertebral disc disorders with radiculopathy, lumbar region; M47.816 Spondylosis without myelopathy or radiculopathy, lumbar region | CPT/HCPCS: 99213 ==

== ENCOUNTER → 2022-11-16 11:10 | Outpatient (BNVA) | payer MEDICARE, SELFPAY | PROVIDERS: PCP Family Medicine; Visit Provider Family Medicine | DX: Z13.6 Encounter for screening for cardiovascular disorders (principal); E03.9 Hypothyroidism, unspecified; D50.9 Iron deficiency anemia, unspecified; D50.0 Iron deficiency anemia secondary to blood loss (chronic) | CPT/HCPCS: 80053; 80061; 82728; 83550; 84443; 85025 ==

== ENCOUNTER → 2023-04-04 10:48 | Outpatient (BNVA) | payer MEDICARE, SELFPAY | PROVIDERS: PCP Family Medicine; Visit Provider Nurse Practitioner Family | DX: M25.571 Pain in right ankle and joints of right foot (principal) | CPT/HCPCS: 73610 ==

== ENCOUNTER → 2023-05-24 08:46 | Outpatient (BNVA) | payer MEDICARE, SELFPAY | PROVIDERS: PCP Family Medicine; Visit Provider Anesthesiology Pain Medicine | DX: R29.818 Other symptoms and signs involving the nervous system (principal); G89.29 Other chronic pain; M51.16 Intervertebral disc disorders with radiculopathy, lumbar region; M47.816 Spondylosis without myelopathy or radiculopathy, lumbar region; M48.062 Spinal stenosis, lumbar region with neurogenic claudication | CPT/HCPCS: 99214 ==

== ENCOUNTER → 2023-05-30 15:32 | Outpatient (BNVA) | payer MEDICARE, SELFPAY | PROVIDERS: PCP Family Medicine; Visit Provider Family Medicine | DX: E03.9 Hypothyroidism, unspecified (principal); K25.3 Acute gastric ulcer without hemorrhage or perforation; D50.9 Iron deficiency anemia, unspecified; D50.0 Iron deficiency anemia secondary to blood loss (chronic) | CPT/HCPCS: 82728; 83550; 84443; 85025 ==

== ENCOUNTER 2023-06-29 07:36 | Outpatient (CLI) | payer MEDICARE, SELFPAY ==
--- NOTE | 2023-06-29 08:00 | MR_ITS ---
WS: [id number] MRI LUMBAR SPINE NONCONTRAST HISTORY: Low back pain, bilateral lower extremity pain. COMPARISON: 02/17/2022 TECHNIQUE: Sagittal and axial multisequence imaging is submitted. Disc protrusions and facet arthritis causing stenosis in the cervical spine at C4-5 and C5-6. Increas e in thoracic kyphosis. Disc bases are all narrowed and desiccated in the cervical and thoracic spine . Mild curvature lumbar spine. Posterior alignment is normal. Heterogeneous signal throughout the verte bral bodies is reidentified without progression. Mild desiccation of the disc spaces. Conus terminates normally at L1-2 disc level. L1-L2: Mild asymmetric disc bulging. Slight encroachment upon the LEFT subarticular recess. Mild LEFT foraminal narrowing. Similar to the prior study. L2-L3: Diffuse annular disc bulging. Facet and ligamentum flavum hypertrophy. Moderate central with b ilateral subarticular recess and foraminal stenosis. Similar to the prior study. L3-L4: Diffuse annular disc bulging with marked ligamentum flavum and facet arthritis. There is a sha llow LEFT paracentral disc protrusion. Fluid in the facet joints. Severe central and bilateral subart icular recess and moderate foraminal stenosis. Similar to the prior study. L4-L5: Severe annular disc bulging and osteophytic ridging. Large LEFT paracentral disc protrusion co ntacting and deforming the thecal sac. Significant encroachment and displacement of the traversing LE FT L4 nerve root. Severe central, bilateral subarticular recess and foraminal stenosis. L5-S1: Diffuse annular disc bulging disc is asymmetric extending into the LEFT foramen. Mild central stenosis and mild subarticular recess encroachment. Severe LEFT facet joint arthritis. Severe LEFT an d moderate RIGHT foraminal stenosis. Stenosis has progressed since the prior study at L5-S1. MR/MR lumbar spine wo con* [id number] IMPRESSION: 1. Advanced multilevel degenerative disc disease and facet arthritis resulting in stenoses throughout the lumbar spine. Mild progression since 02/17/2022. 2. L4-5: Severe central, bilateral subarticular recess and foraminal stenosis. There is a large LEFT paracentral disc protrusion with significant contact on the traversing LEFT L4 nerve root. 3. L3-4: Severe central and bilateral subarticular recess with moderate forami nal stenosis. 4. L5-S1: Mild central stenosis with severe LEFT and moderate RIGHT foraminal stenosis. Foraminal stenoses has progressed since the prior study. 5. L2-3: Moderate central with bilateral subarticular recess and foraminal marlena nosis unchanged. 6. L1-2: Mild LEFT foraminal narrowing.
== END 2023-06-29 07:37 | disposition home or self-care (01) ==
LOC: RAD 07:36
PROVIDERS: PCP Family Medicine; Visit Provider Anesthesiology Pain Medicine
DX: R29.818 Other symptoms and signs involving the nervous system (principal); M48.061 Spinal stenosis, lumbar region without neurogenic claudication; M51.36 Other intervertebral disc degeneration, lumbar region; M46.06 Spinal enthesopathy, lumbar region; M25.70 Osteophyte, unspecified joint; M47.896 Other spondylosis, lumbar region
CPT/HCPCS: 72148

== ENCOUNTER → 2023-07-13 08:57 | Outpatient (BNVA) | payer MEDICARE, SELFPAY | PROVIDERS: PCP Family Medicine; Visit Provider Anesthesiology Pain Medicine | DX: M48.062 Spinal stenosis, lumbar region with neurogenic claudication (principal) | CPT/HCPCS: 99214 ==

== ENCOUNTER → 2023-09-29 08:49 | Outpatient (BNVA) | payer MEDICARE, SELFPAY | PROVIDERS: PCP Family Medicine Adult Medicine; Visit Provider Family Medicine Adult Medicine | DX: R39.9 Unspecified symptoms and signs involving the genitourinary system (principal) | CPT/HCPCS: 81000 ==

== ENCOUNTER → 2023-10-07 10:57 | Outpatient (BNVA) | payer MEDICARE, SELFPAY | PROVIDERS: PCP Family Medicine Adult Medicine; Visit Provider Family Medicine | DX: R39.9 Unspecified symptoms and signs involving the genitourinary system (principal) | CPT/HCPCS: 81000; 87077; 87086; 87184 ==

== ENCOUNTER → 2024-05-25 09:46 | Outpatient (BNVA) | payer MEDICARE, SELFPAY | PROVIDERS: PCP Family Medicine; Visit Provider Family Medicine | DX: Z13.6 Encounter for screening for cardiovascular disorders (principal); D50.0 Iron deficiency anemia secondary to blood loss (chronic); D50.9 Iron deficiency anemia, unspecified; E03.9 Hypothyroidism, unspecified | CPT/HCPCS: 80053; 80061; 82728; 83550; 84439; 84443; 85025 ==

== ENCOUNTER → 2024-11-11 10:21 | Outpatient (BNVA) | payer MEDICARE, SELFPAY | PROVIDERS: PCP Family Medicine; Visit Provider Emergency Medicine | DX: R30.0 Dysuria (principal) | CPT/HCPCS: 81000 ==

== ENCOUNTER → 2025-02-05 08:02 | Outpatient (BNVA) | payer MEDICARE, SELFPAY | PROVIDERS: Visit Provider Family Medicine Adult Medicine | DX: R39.89 Other symptoms and signs involving the genitourinary system (principal) | CPT/HCPCS: 81000 ==

== ENCOUNTER 2025-02-07 19:47 | Emergency (ER) | payer MEDICARE, SELFPAY ==
--- OUTSIDE RECORDS SUMMARY | 2025-02-07 19:56 | XMS_ITS | Clinical Summary ---
Author Organization [facility] Address [address] [place] [address] Care Team Providers Care Bowling Teacher Name Role Phone Unavailable Primary Care Provider Unavailabl e Medications Levothyroxine 125 mcg Capsule 06/07/1984 Active omeprazole (PriLOSEC) 40 mg Capsule, Delayed Release(E.C.) 05/31/2023 Activ e Active Problems No known active problems Social History Tobacco Use Types Packs/Day Years Used Date Smoking Tobacco: Never Passive Smoke Exposure: Never Smokeless Tobacco: Never Tobacco Cessation:Counseling Given: Not Answered Feeling Safe Answer Date Recorded Are you in a relationship wi th someone who hurts you emotionally and/or physically? No 08/08/2023 Comments No Sex and Gender Information Value Date Recorded Sex Assigned at Not on file Legal Sex Female 1:57 PM CDT Gender Identity Not on file Sexual Orientation Not on file Last Filed Vital Signs Vital Sign Reading Time Taken Comments Blood Pressure 122/82 11/07/2023 10:26 AM CDT Pulse 58 08/08/2023 1:14 PM CDT Temperature 36.4 C (97.6 F) 08/08/2023 12:43 PM CDT Respiratory Rate 16 08/08/2023 12:43 PM CDT Oxygen Saturation 97% 08/08/2023 1:14 PM CDT Inhaled Oxygen Concentration - - Weight 56.7 kg (125 lb) 11/07/2023 10:26 AM CDT Height 172.7 cm (5' 8 ) 11/07/2023 10:26 AM CDT Body Mass Index 19.01 11/07/2023 10:26 AM CDT Plan of Treatment Health Maintenance Due Date Last Done Comments DTAP/TDAP/TD VACCINES (1 - Tdap) 05/23/1974 BREAST CANCER SCREENING 1995 COLORECTAL SCREENING 05/23/2000 Colorectal Cancer Screening 05/23/2000 FIT-DNA Q 3 years 05/23/2000 FIT/FOBT Q 1 year 05/23/2000 Flex Sig/CT Colonography Q 5 years 05/23/2000 PNEUMOCOCCAL VACCINE 50+ YEARS (1 of 1 - PCV) 05/24/19 06 ZOSTER VACCINE (1 of 2) 05/23/2005 OSTEOPOROSIS SCREENING 05/23/2020 INFLUENZA VACCINE (#1) 2024 RSV VACCINE (60+ or ) (1 - 1-dose 75+ series) 05/23/2030 Insurance
[2025-02-07 20:04] VITALS: BP 176/88; PULSE 76; RESP 18; TEMP 36.8; O2SAT 95; BMI 19.0
[2025-02-07 20:07] VITALS: BP 176/88; PULSE 76; RESP 18; TEMP 36.8; O2SAT 95
[2025-02-07 20:50] LABS: Glucose Urine UA Negative (Normal); Nitrate Urine Positive (Negative); Specific Gravity, Urine 1.004 (1.005-1.030)
[2025-02-07 20:52] LABS: Add Urine Microscopic? YES
[2025-02-07 21:10] VITALS: BP 150/79; PULSE 85; RESP 18; O2SAT 100
--- NOTE | 2025-02-07 21:11 | CTR_ITS ---
PROCEDURE INFORMATION: Exam: CT Abdomen And Pelvis Without Contrast Exam date and time: 02/07/2025 9:19 PM Age: 69 years old Clinical indication: Abdominal pain; Left flank pain with hematuria; Additional info: L flank pain hematuria TECHNIQUE: Imaging protocol: Computed tomography of the abdomen and pelvis without contrast. Radiation optimization: All CT scans at this facility use at least one of these dose optimization techniques: automated exposure control; mA and/or kV adjustment per patient size (includes targeted exams where dose is matched to clinical indication); or iterative reconstruction. COMPARISON: US abdomen complete* [id number] 10/12/2021 6:37 AM RADIATION DOSE METRICS: Total DLP (mGy-cm): 337.33 FINDINGS: Lungs: The lung bases are clear. Heart: Heart size is within normal limits. There is no pericardial effusion or pericardial thickening. Liver: Small hepatic cysts are present. The liver is otherwise normal. Gallbladder and biliary ducts: The gallbladder is contracted. There is no ductal dilatation. Pancreas: The pancreas is normal. Spleen: The spleen is normal. Adrenal glands: The adrenal glands are normal. Kidneys and ureters: No renal calcifications. No right hydronephrosis. Mild left hydronephrosis and moderate dilatation of the left ureter. There is questionable urothelial thickening involving the distal left ureter best seen on coronal imaging. No calcifications identified. There is questionable focal bladder wall thickening at the left ureterovesicular junction. Stomach and bowel: [id number] retained colonic stool. There is no large or small bowel obstruction. There is no evidence of bowel wall thickening. Appendix: No evidence of acute appendicitis. Intraperitoneal space: No inflammatory changes are identified. There is no free fluid or fluid collection seen. There is no pneumoperitoneum. Vasculature: Atherosclerotic calcifications of the aorta are present. No aneurysm is identified. Lymph nodes: No enlarged lymph nodes are identified. Urinary bladder: Questionable focal left posterior bladder wall thickening. The bladder is otherwise unremarkable. Reproductive: Multiple uterine calcifications and small masses are present most consistent with fibroid uterus. Bones/joints: No acute osseous abnormalities are seen. Degenerative changes of the lumbar spine. Severe degenerative change of the right femoroacetabular joint. Soft tissues: The soft tissues are within normal limits. CT/CT kidney stone [id number] IMPRESSION: 1. Moderate dilatation of the left ureter and mild left hydronephrosis. Questionable urothelial thickening of the distal left ureter and bladder wall thickening in the region of the left ureterovesicular junction. Differential diagnosis includes inflammatory/infectious and neoplastic processes. Recommend urological consultation. 2. No evidence of urolithiasis. 3. Other nonemergent findings above.
[2025-02-07 21:15] LABS: Hematocrit 36.3 % (36-47); Hemoglobin 12.00 g/dL (11.27-16.99); Mean Corpuscular HGB Conc 33.1 g/dL (30-55); Mean Corpuscular Hemoglobin 32.3 pg (27-33); Mean Corpuscular Volume 97.6 fl (85-98); Nucleated Red Blood Cells % 0 %; Platelet Count 311 10^3/cmm (157-399); Red Blood Count 3.72 10^6/uL (3.85-5.65); White Blood Count 7.03 10^3/uL (3.29-11.43)
[2025-02-07 21:28] LABS: Alanine Aminotransferase 15 U/L (0-33); Albumin Level 4.2 g/dL (3.5-5.2); Alkaline Phosphatase 61 U/L (35-105); Anion Gap 13.9 (5-19); Aspartate Amino Transferase 20 U/L (0-32); Blood Urea Nitrogen 26 mg/dL (8-23); Calcium 9.5 mg/dL (8.5-10.5); Carbon Dioxide 24 mmol/L (22-29); Chloride 101 mmol/L (98-107); Globulin 2.8 g/dL (1.3-4.6); Glucose 98 mg/dL (65-115); Lipase 55 U/L (13-60); Osmolality Calculated 285 mOsm/kg (285-295); Potassium 3.9 mmol/L (3.5-5.1); Sodium 135 mmol/L (136-145); Total Protein 7.0 g/dL (6.6-8.7)
[2025-02-07 21:37] VITALS: BP 152/78; PULSE 78; RESP 18; O2SAT 100
[2025-02-07 22:02] VITALS: BP 155/77; PULSE 75; RESP 16; O2SAT 100
[2025-02-07 22:21] VITALS: BP 148/88; PULSE 76; RESP 18; O2SAT 100
--- NOTE | 2025-02-07 23:15 | ED_ITS ---
HPI - Female Genitourinary 2 General: Chief complaint: Urogenital-Male Stated complaint: uti not better back pain now Time Seen by Provider: 02/07/25 20:54 History of Present Illness: This 69-year-old female presents with worsening symptoms of a previously diagnosed urinary tract infection. She reports experiencing a tingling and burning sensation during urination that has intensified. The patient has been taking phenazopyridine (yellow tablet) for symptomatic relief, which provided some benefit after approximately two hours but left her feeling restless and uncomfortable. She has developed new onset right flank pain with occasional cramping that is intermittent rather than constant. The patient has been increasing her fluid intake, resulting in urinary frequency with voiding approximately every ten minutes. She became concerned about potential kidney involvement and decided to seek immediate medical attention rather than waiting until the next day to return to urgent care. She denies fever and vomiting. The patient is currently taking ciprofloxacin for the UTI and reports no visible blood in her urine. Related Data Previous Rx's ?Medication ?Instructions ?Recorded levothyroxine 125 mcg tablet 125 mcg PO DAILY 90 days #90 tabs 05/03/24 omeprazole 40 mg capsule,delayed See Rx Instructions . Route 01/18/25 release .COMPLEX #90 caps ciprofloxacin HCl 500 mg tablet 500 mg PO BID UTI #10 tabs 02/05/25 cefdinir 300 mg capsule 300 mg PO BID #14 caps 02/07 hydrocodone 5 mg-acetaminophen 325 1 tab PO TID PRN pa in #7 tabs 02/07/25 mg tablet ondansetron 4 mg disintegrating 4 mg PO Q6H PRN nausea and 02/07/25 tablet vomiting #14 tabs tamsulosin 0.4 mg capsule 0.4 mg PO DAILY #30 caps Allergies Allergy/AdvReac Type Severity Reaction Status Date / Time No Known Allergies Allergy Verified 02/05/25 07:45 PFS ED 2 PFSH: Medical History NSAID induced gastritis Impacted cerumen, right ear Hx of peptic ulcer 07/22/2021 Dr. Masterson, and gastritis on EGD, colonoscopy Acquired hypothyroidism Surgical History History of tonsillectomy History of left knee surgery History of esophagogastroduodenoscopy (EGD) Status post colonoscopy (07/22/21) Family History Family/Other Cancer Mother Cataract Hypertension Grandfather No problems noted. Denies family history of Diabetes CAD (coronary artery disease) Clotting disorder Dementia Hyperlipidemia Psychiatric illness Chronic kidney disease (CKD) Suicide Anesthesia complication Bleeding disorder Lung disease Stroke Social History Smoking and tobacco/nicotine status: former use of tobacco/nicotine Second hand smoke exposure: No Alcohol intake: never Substance/Drug Use: never Physical Exam 2 Const: COMMON NORMALS: no acute distress GENERAL APPEARANCE: cooperative; not ill appearing and not frail appearing HENMT: COMMON NORMALS: normocephalic, atraumatic and Normal external nose present HEAD & SCALP: normocephalic and atraumatic FACE & SINUS: normal facial exam and face symmetric NOSE: Normal external nose present Eye: COMMON NORMALS: Equal, round and reactive pupils present and EOMs intact bilaterally PUPIL: Yes Equal, round and reactive pupils present Neck/C-Spine: GENERAL: Yes trachea midline Chest: CHEST: Yes Symmetrical chest wall rise Resp: COMMON NORMALS: normal respiratory effort, No retractions, No use of accessory muscles and clear to auscultation bilaterally AUSCULTATION: clear to auscultation bilaterally Cardio: COMMON NORMALS: regular rate and regular rhythm RATE: regular rate RHYTHM: regular rhythm GI: COMMON NORMALS: Normal to inspection, nondistended, normoactive bowel sounds present : BLADDER/KIDNEY EXAM: Yes CVA tenderness on the left Back/Pelvis: GENERAL BACK: Yes CVA tenderness Extremity: COMMON NORMALS: no pedal edema Neuro: CHARLENE COMA SCALE: document GCS findings Charlene coma scale eye opening: Spontaneous [place] coma scale verbal response: Orientated Charlene coma scale motor response: Obey commands [place] coma scale total score: 15 S ENSORY EXAM: Yes extremities (intact) Psych: COMMON NORMALS: speech normal SPEECH: Yes normal speech Skin: COMMON NORMALS: no rashes or lesions noted GENERAL SKIN EXAM: no rashes or lesions noted Course 2 Vital Signs: Vital signs: Vital Signs Temperature 98.3 F 02/07/25 20:07 Pulse Rate 76 02/07/25 22:21 Respiratory Rate 18 02/07/25 22:21 Blood Pressure 148/88 02/07/25 22:21 Pulse Oximetry 100 02/07/25 22:21 Oxygen Delivery Me thod Room Air 02/07/25 21:10 MDM - Female Medical Decision Making The patient is afebrile vitals are stable. She is not in pain currently. CBC is normal. BMP is not remarkable. CT shows moderate dilation of the left ureter and mild left hydronephrosis without stone or visible other obstruction. There is urothelial thickening of the left distal ureter and bladder wall thickening. This is likely related to urinary tract infection however urology consult is suggested by the radiologist. We will place her on Flomax to relieve the obstructive symptoms. Switch her Cipro to cefdinir, as she still has evidence of urinary tract infection on urinalysis. We will refer her to urology as an outpatient. Case management has been alerted. She will return for worsening symptoms. Stable currently for discharge. Lab Data 02/07/25 20:57 02/07/25 20:57 Radiology Impressions Abdomen/Pelvis CT 02/07/25 21:11 IMPRESSION: 1. Moderate dilatation of the left ureter and mild left hydronephrosis. Questionable urothelial thickening of the distal left ureter and bladder wall thickening in the region of the left ureterovesicular junction. Differential diagnosis includes inflammatory/infectious and neoplastic processes. Recommend urological consultation. 2. No evidence of urolithiasis. 3. Other nonemergent findings above. Laboratory Results WBC 7.03 10^3/uL (3.29-11.43) 02/07/25 20:57 RBC 3.72 10^6/uL (3.85-5.65) L 02/07/25 20:57 Hgb 12.00 g/dL (11.27-16.99) 02/07/25 20:57 Hct 36.3 % (36-47) 02/07/25 20:57 MCV 97.6 fl (85-98) 02/07/25 20:57 MCH 32.3 pg (27-33) 02/07/25 20:57 MCHC 33.1 g/dL (30-55) 02/07/25 20:57 RDW 12.9 % (12.1-15.1) 02/07/25 20:57 Plt Count 311 10^3/cmm (157-399) 02/07/25 20:57 MPV 8.9 fL (7.4-10.4) 02/07/25 20:57 Neut % (Auto) 73.5 % 02/07/25 20:57 Lymph % (Auto) 17.6 % 02/07/25 20:57 [place] % (Auto) 6.4 % 02/07/25 20:57 Eos % (Auto) 1.6 % 02/07/25 20:57 Baso % (Auto) 0.6 % 02/07/25 20:57 Neut # (Auto) 5.17 10^3/uL (1.8-7.7) 02/07/25 20:57 Lymph # (Auto) 1.2 10^3/uL (0.8-4.8) 02/07/25 20:57 [place] # (Auto) 0.5 10^3/uL (0.2-0.9) 02/07/25 20:57 Eos # (Auto) 0.1 10^3/uL (0.0-0.8) 02/07/25 20:57 Baso # (Auto) 0.0 10^3/uL (0.0-0.1) 02/07/25 20: Nucleated RBC % (auto) 0 % 02/07/25 20: Nucleated RBCs # 0.0 /100WBC 02/07/25 20:57 Sodium 135 mmol/L (136-145) L 02/07/25 20:57 Potassium 3.9 mmol/L (3.5-5.1) 02/07/25 20:57 Chloride 101 mmol/L (98-107) 02/07/25 20:57 Carbon Dioxide 24 mmol/L (22-29) 02/07/25 20:57 Anion Gap 13.9 (5-19) 02/07/25 20:57 BUN 26 mg/dL (8-23) H 02/07/25 20:57 Creatinine 0.6 mg/dL (0.5-0.9) 02/07/25 20:57 GFR Calculation 99.1 mL/min (90-130) 02/07/25 20:57 Glucose 98 mg/dL (65-115) 02/07/25 20:57 Calculated Osmolality 285 mOsm/kg (285-295) 02/07/25 20:57 Calcium 9.5 mg/dL (8.5-10.5) 02/07/25 20: Total Bilirubin 0.2 mg/dL (0.15-1.2) 02/07/25 20: AST 20 U/L (0-32) 02/07/25 20: ALT 15 U/L (0-33) 02/07/25 20: Alkaline Phosphatase 61 U/L (35-105) 02/07/25 20: C-Reactive Protein 3.0 mg/L (0.0-4.9) 02/07/25 20: Total Protein 7.0 g/dL (6.6-8.7) 02/07/25 20: Albumin 4.2 g/dL (3.5-5.2) 02/07/25 20: Globulin 2.8 g/dL (1.3-4.6) 02/07/25 20: Lipase 55 U/L (13-60) 02/07/25 20: Urine Color Dark yellow (Yellow) A 02/07/25 20: Urine Appearance Cloudy (CLEAR) A 02/07/25 20: Urine pH 6.5 (5-7) 02/07/25 20: Ur Specific [place] 1.004 (1.005-1.030) L 02/07/25 20: Urine Protein 1+ (Negative) A 02/07/25 20: Urine Glucose (UA) Negative (Normal) 02/07/25 20: Urine Ketones Negative (Negative) 02/07/25 20: Urine Blood 3+ (Negative) A 02/07/25 20: Urine Nitrate Positive (Negative) A 02/07/25 20: Urine Bilirubin Negative (Negative) 02/07/25 20: Urine Urobilinogen 1.0 mg/dL (Negative) 02/07/25 20: Ur Leukocyte Esterase 3+ (Negative) A 02/07/25 20: Urine RBC 11-20 /hpf (0-2) H 02/07/25 20: Urine WBC >100 /hpf (0-5) H 02/07/25 20:41 Ur Squamous Epith Cells 0-5 /hpf (0-5) 02/07/25 20: Amorphous Sediment Not Reportable 02/07/25 20:41 Urine Bacteria None seen /hpf (NONE) 02/07/25 20:41 Hyaline Casts 3.30 /lpf 02/07/25 20:41 All radiology interpretation(s) finalized by discharge Discharge Plan Discharge Patient Disposition: Home Clinical Impression: Acute UTI, Acquired stricture of ureter Condition: Stable Prescriptions: New cefdinir 300 mg capsule 300 mg PO BID Qty: 14 0RF hydrocodone-acetaminophen 5-325 mg tablet 1 tab PO TID PRN (Reason: pain) Qty: 7 0RF tamsulosin 0.4 mg capsule 0.4 mg PO DAILY Qty: 30 0RF ondansetron 4 mg tablet,disintegrating 4 mg PO Q6H PRN (Reason: nausea and vomiting) Qty: 14 0RF No Action ciprofloxacin HCl 500 mg tablet 500 mg PO BID Qty: 10 0RF levothyroxine 125 mcg tablet 125 mcg PO DAILY 90 Days Qty: 90 1RF omeprazole 40 mg capsule,delayed release(DR/EC) See Rx Instructions .ROUTE .COMPLEX Qty: 90 0RF Dose Instruction: TAKE 1 CAPSULE BY MOUTH ONCE DAILY FOR ACID REFLUX Rx Instructions: TAKE 1 CAPSULE BY MOUTH ONCE DAILY FOR ACID REFLUX Discharge Orders: Discharge ED (Routine); Ordered 02/07/25 Ordered By: Chirag Maynard Referrals: Camille Zamora DO [Primary Care Provider, Family Practice] Patient Instructions: Urinary Tract Infection in Women (ED), Hematuria (ED), Opioid Safety, Pain Management, Patient Portal & Jasmin Instructions Activity Restrictions/Additional Instructions: You have a stricture in your left ureter that could be caused from the infection. This will require urology follow-up. Case management has been asked to make you an appointment. You should hear from them the end of this week, or early next week. In the meantime, stop the antibiotics previously prescribed. Take the antibiotics we gave you. Use the medication to help relieve the obstruction from the stricture called Flomax. Pain and nausea medication as needed. Return for fever greater than 100 ?F despite 2-3 more doses of antibiotics, vomiting liquids or medications, uncontrolled pain, etc. Print Language: Kittitian Coding Level of Care Code ED Respiratory Physician for Abiola Nichols
== END 2025-02-07 22:23 | disposition home or self-care (01) ==
PROVIDERS: Emergency Provider Emergency Medicine; PCP Family Medicine
DX: N39.0 Urinary tract infection, site not specified (principal); N13.5 Crossing vessel and stricture of ureter without hydronephrosis; Z87.891 Personal history of nicotine dependence
CPT/HCPCS: 36415; 74176; 80053; 81001; 83690; 85025; 86140; 87077; 87086; 87186; 99284; J9999

== ENCOUNTER 2025-02-11 08:07 | Observation (INO) | payer MEDICARE, SELFPAY ==
[2025-02-11] VITALS (9 sets, daily range): BP systolic 135–163; BP diastolic 80–89; PULSE 65–73; RESP 16–18; TEMP 36.4–36.7; O2SAT 18–99; BMI 19.0
--- OUTSIDE RECORDS SUMMARY | 2025-02-11 08:22 | XMS_ITS | Clinical Summary ---
Author Organization [facility] Address [address] [place] [address] Care Team Providers Care Student Development Coordinator Name Role Phone Unavailable Primary Care Provider [...] (1 - 1-dose 75+ series) 05/23/2030 Insurance [facility] Address: [address] [id number]
[2025-02-11 10:03] LABS: Hematocrit 38.8 % (36-47); Hemoglobin 12.50 g/dL (11.27-16.99); Mean Corpuscular HGB Conc 32.2 g/dL (30-55); Mean Corpuscular Hemoglobin 32.0 pg (27-33); Mean Corpuscular Volume 99.2 fl (85-98); Nucleated Red Blood Cells % 0 %; Platelet Count 351 10^3/cmm (157-399); Red Blood Count 3.91 10^6/uL (3.85-5.65); White Blood Count 4.31 10^3/uL (3.29-11.43)
--- NOTE | 2025-02-11 10:23 | W.ED.FEMALGU ---
Documented by User: DANIEL Kruger 02/11/25 12:48 HPI - Female Genitourinary General: Chief complaint: Urogenital-Female Stated complaint: burning when urinating Time Seen by Provider: 02/11/25 08:36 Source: patient and family Mode of arrival: ambulatory Limitations: no limitations History of Present Illness: Patient is a 69-year-old female who presents with non-improving UTI symptoms. She reports experiencing a tingling and burning sensation during urination, urinary frequency as well as bladder pain/spasms. The patient has been taking phenazopyridine for symptomatic relief, which provided some benefit. She was originally placed on Cipro when it was first diagnosed on 02/05. She was seen here in ED on 02/07 for continued symptoms and switched to Cefdinir. She is concerned because she has not noticed any improvement. Denies back/flank pain. She denies fever and vomiting. No visible blood in her urine. MD elicited complaint: dysuria and UTI Onset (ago): day(s) Severity: moderate Female Urogenital Radiation: Suprapubic Consistency: constant Vaginal discharge: none Vaginal bleeding: none Urinary symptoms: Dysuria, Frequency and Urgency Exacerbating factors: none Relieving factors: none Associated symptoms: Reports no associated symptoms; Deny abdominal pain or nausea Treatment prior to arrival: none Sexual activity: No Patient : No Related Data Previous Rx's ?Medication ?Instructions ?Recorded levothyroxine 125 mcg tablet 125 mcg PO DAILY 90 days #90 tabs 05/03/24 omeprazole 40 mg capsule,delayed See Rx Instructions .Route 01/18/25 release .COMPLEX #90 caps ciprofloxacin HCl 500 mg tablet 500 mg PO BID UTI #10 tabs 02/05/25 cefdinir 300 mg capsule 300 mg PO BID #14 caps 02/07/25 hydrocodone 5 mg-acetaminophen 325 1 tab PO TID PRN pain #7 tabs 02/07/25 mg tablet ondansetron 4 mg disintegrating 4 mg PO Q6H PRN nausea and 02/07/25 tablet vomiting #14 tabs tamsulosin 0.4 mg capsule 0.4 mg PO DAILY #30 caps 02/07/25 Allergies Allergy/AdvReac Type Severity Reaction Status Date / Time No Known Allergies Allergy Verified 02/05/25 07:45 Review of Systems Const: Denies: fever(s), chills, body aches, fatigue or malaise Card: Denies: chest pain Resp: Denies: dyspnea GI: Denies: abdominal pain, nausea, vomiting, diarrhea or change in bowel habits : Reports: dysuria, urinary frequency, urinary urgency, urinary hesitancy and nocturia; Denies: flank pain or hematuria Musc: Denies: back pain Neuro: Denies: dizziness PFSH ED PFSH: Medical History NSAID induced gastritis Impacted cerumen, right ear Hx of peptic ulcer 07/22/2021 Dr. Masterson, and gastritis on EGD, colonoscopy Acquired hypothyroidism Surgical History History of tonsillectomy History of left knee surgery History of esophagogastroduodenoscopy (EGD) Status post colonoscopy (07/22/21) Family History Family/Other Cancer Mother Cataract Hypertension Grandfather No problems noted. Denies family history of Diabetes CAD (coronary artery disease) Clotting disorder Dementia Hyperlipidemia Psychiatric illness Chronic kidney disease (CKD) Suicide Anesthesia complication Bleeding disorder Lung disease Stroke Social History Smoking and tobacco/nicotine status: former use of tobacco/nicotine Second hand smoke exposure: No Alcohol intake: never Substance/Drug Use: never Physical Exam Const: COMMON NORMALS: no acute distress, average body habitus, patient oriented x3, no limitations, healthy appearing, alert and well nourished GENERAL APPEARANCE: cooperative ORIENTATION/CONSCIOUSNESS: Yes awake, Yes oriented to person, Yes oriented to place and Yes oriented to time Resp: COMMON NORMALS: normal respiratory effort and clear to auscultation bilaterally AUSCULTATION: clear to auscultation bilaterally Cardio: COMMON NORMALS: regular rate and regular rhythm RATE: regular rate RHYTHM: regular rhythm GI: COMMON NORMALS: Normal to inspection, nondistended, normoactive bowel sounds present, Soft to palpation, No hepatosplenomegaly present and no masses INSPECTION: Yes normal to inspection AUSCULTATION: Yes normoactive bowel sounds PALPATION: Yes Soft to palpation, Yes Tenderness to palpation present (GI) (suprapubic), No Guarding due to palpation present (GI), No Rigid due to palpation and Yes No hepatosplenomegaly present : COMMON NORMALS: Yes no CVA tenderness BLADDER/KIDNEY EXAM: Yes no CVA tenderness Back/Pelvis: COMMON NORMALS: no CVA tenderness, thoracic and lumbar spine normal to inspection and no thoracic nor lumbar tenderness Extremity: GENERAL: Yes normal exam except as noted Neuro: COMMON NORMALS: patient oriented x3, moves all extremities, no focal motor deficits and no sensory deficits noted SENSORIUM/ORIENTATION: Yes alert, Yes oriented to person, Yes oriented to place and Yes oriented to time Skin: COMMON NORMALS: no rashes or lesions noted GENERAL SKIN EXAM: no rashes or lesions noted Course Consultations: Consultation #1: Dr. Barkley-recommending consulting with ID to see if she can be discharged on Macrobid or needs admission for IV abx Consultation #2: Dr. Leon-recommending consulting with urology based on CT imaging from 02/07 showing L ureter dilatation and L hydroneprosis as Macrobid will not be effective if there is an obstructive or ascending process Consultation #3: [facility]-no urology motion picture critic today [facility] urology-Dr. Sewell-did recommend IV abx based on CT findings/sensitivity report but did not require transfer as there was nothing emergent urology would do Vital Signs: Vital signs: Vital Signs Temperature 97.6 F 02/11/25 08:19 Pulse Rate 67 02/11/25 10:29 Respiratory Rate 16 02/11/25 10:29 Blood Pressure 155/86 02/11/25 12:04 Pulse Oximetry 99 02/11/25 12:04 Oxygen Delivery Me thod Room Air 02/11/25 10:29 MDM - Female Medical Decision Making Patient is a nice 69-year-old female here for continued urinary dysuria, frequency, urgency, and suprapubic/bladder pain/spasm. Patient was found to have an E. coli ESBL UTI on her last culture and sensitivity report performed on 02/07. Sensitivities based on this report include Imipenem, Zosyn, Nitrofurantoin. I have consulted with hospitalist, infectious disease, as well as urology based on her CT scan from a few days ago showing some dilatation to the left ureter and mild left hydronephrosis. General consensus is admission for IV antibiotics. She can follow-up with urology as an outpatient. Case discussed with Dr. Lloyd who agrees with need for admission and will place admit orders. Medical Records I reviewed the patient's medical records. Lab Data I reviewed the patient's lab results. 02/11/25 09:42 02/11/25 09:42 Laboratory Results WBC 4.31 10^3/uL (3.29-11.43) 02/11/25 09:42 RBC 3.91 10^6/uL (3.85-5.65) 02/11/25 09:42 Hgb 12.50 g/dL (11.27-16.99) 02/11/25 09:42 Hct 38.8 % (36-47) 02/11/25 09:42 MCV 99.2 fl (85-98) H 02/11/25 09:42 MCH 32.0 pg (27-33) 02/11/25 09:42 MCHC 32.2 g/dL (30-55) 02/11/25 09:42 RDW 12.7 % (12.1-15.1) 02/11/25 09:42 Plt Count 351 10^3/cmm (157-399) 02/11/25 09:42 MPV 8.9 fL (7.4-10.4) 02/11/25 09:42 Neut % (Auto) 57.1 % 02/11/25 09:42 Lymph % (Auto) 32.0 % 02/11/25 09:42 [place] % (Auto) 7.2 % 02/11/25 09:42 Eos % (Auto) 2.6 % 02/11/25 09:42 Baso % (Auto) 0.9 % 02/11/25 09:42 Neut # (Auto) 2.46 10^3/uL (1.8-7.7) 02/11/25 09:42 Lymph # (Auto) 1.4 10^3/uL (0.8-4.8) 02/11/25 09:42 [place] # (Auto) 0.3 10^3/uL (0.2-0.9) 02/11/25 09:42 Eos # (Auto) 0.1 10^3/uL (0.0-0.8) 02/11/25 09:42 Baso # (Auto) 0.0 10^3/uL (0.0-0.1) 02/11/25 09:42 Nucleated RBC % (auto) 0 % 02/11/25 09:42 Nucleated RBCs # 0.0 /100WBC 02/11/25 09:42 Sodium 139 mmol/L (136-145) 02/11/25 09:42 Potassium 4.2 mmol/L (3.5-5.1) 02/11/25 09:42 Chloride 103 mmol/L (98-107) 02/11/25 09:42 Carbon Dioxide 27 mmol/L (22-29) 02/11/25 09:42 Anion Gap 13.2 (5-19) 02/11/25 09:42 BUN 23 mg/dL (8-23) 02/11/25 09:42 Creatinine 0.6 mg/dL (0.5-0.9) 02/11/25 09:42 GFR Calculation 99.1 mL/min (90-130) 02/11/25 09:42 Glucose 78 mg/dL (65-115) 02/11/25 09:42 Calculated Osmolality 291 mOsm/kg (285-295) 02/11/25 09:42 Calcium 9.8 mg/dL (8.5-10.5) 02/11/25 09:42 Total Bilirubin 0.2 mg/dL (0.15-1.2) 02/11/25 09:42 AST 20 U/L (0-32) 02/11/25 09:42 ALT 19 U/L (0-33) 02/11/25 09:42 Alkaline Phosphatase 65 U/L (35-105) 02/11/25 09:42 Total Protein 7.1 g/dL (6.6-8.7) 02/11/25 09:42 Albumin 4.5 g/dL (3.5-5.2) 02/11/25 09:42 Globulin 2.6 g/dL (1.3-4.6) 02/11/25 09:42 Urine Color Yellow (Yellow) 02/11/25 08:35 Urine Appearance Clear (CLEAR) 02/11/25 08:35 Urine pH 6.5 (5-7) 02/11/25 08:35 Ur Specific [place] 1.004 (1.005-1.030) L 02/11/25 08:35 Urine Protein Negative (Negative) 02/11/25 08:35 Urine Glucose (UA) Negative (Normal) 02/11/25 08:35 Urine Ketones Negative (Negative) 02/11/25 08:35 Urine Blood Trace (Negative) A 02/11/25 08:35 Urine Nitrate Negative (Negative) 02/11/25 08:35 Urine Bilirubin Negative (Negative) 02/11/25 08:35 Urine Urobilinogen 0.2 mg/dL (Negative) 02/11/25 08:35 Ur Leukocyte Esterase 2+ (Negative) A 02/11/25 08:35 Urine RBC 0-2 /hpf (0-2) 02/11/25 08:35 Urine WBC 21-50 /hpf (0-5) H 02/11/25 08:35 Ur Squamous Epith Cells 0-5 /hpf (0-5) 02/11/25 08:35 Amorphous Sediment Not Reportable 02/11/25 08:35 Urine Bacteria None seen /hpf (NONE) 02/11/25 08:35 Hyaline Casts 0-4 /lpf H 02/11/25 08:35 No radiology studies performed this visit Discharge Plan Discharge Patient Disposition: Admitted As Inpatient Clinical Impression: UTI due to extended-spectrum beta lactamase (ESBL) producing Escherichia coli Condition: Stable Coding Level of Care Code ED Game Artist for Chg Fwd Documented by User: Miguelangel Lloyd MD 02/11/25 12:50 HPI - Female Genitourinary General: Chief complaint: Urogenital-Female Stated complaint: burning when urinating Time Seen by Provider: 02/11/25 08:36 Related Data Previous Rx's ?Medication ?Instructions ?Recorded levothyroxine 125 mcg tablet 125 mcg PO DAILY 90 days #90 tabs 05/03/24 omeprazole 40 mg capsule,delayed See Rx Instructions .Route 01/18/25 release .COMPLEX #90 caps ciprofloxacin HCl 500 mg tablet 500 mg PO BID UTI #10 tabs 02/05/25 cefdinir 300 mg capsule 300 mg PO BID #14 caps 02/07/25 hydrocodone 5 mg-acetaminophen 325 1 tab PO TID PRN pain #7 tabs 02/07/25 mg tablet ondansetron 4 mg disintegrating 4 mg PO Q6H PRN nausea and 02/07/25 tablet vomiting #14 tabs tamsulosin 0.4 mg capsule 0.4 mg PO DAILY #30 caps 02/07/25 Allergies Allergy/AdvReac Type Severity Reaction Status Date / Time No Known Allergies Allergy Verified 02/05/25 07:45 PFSH ED PFSH: Medical History NSAID induced gastritis Impacted cerumen, right ear Hx of peptic ulcer 07/22/2021 Dr. Masterson, and gastritis on EGD, colonoscopy Acquired hypothyroidism Surgical History History of tonsillectomy History of left knee surgery History of esophagogastroduodenoscopy (EGD) Status post colonoscopy (07/22/21) Family History Family/Other Cancer Mother Cataract Hypertension Grandfather No problems noted. Denies family history of Diabetes CAD (coronary artery disease) Clotting disorder Dementia Hyperlipidemia Psychiatric illness Chronic kidney disease (CKD) Suicide Anesthesia complication Bleeding disorder Lung disease Stroke Social History Smoking and tobacco/nicotine status: former use of tobacco/nicotine Second hand smoke exposure: No Alcohol intake: never Substance/Drug Use: never Course Vital Signs: Vital signs: Vital Signs Temperature 97.6 F 02/11/25 08:19 Pulse Rate 67 02/11/25 10:29 Respiratory Rate 16 02/11/25 10:29 Blood Pressure 155/86 02/11/25 12:04 Pulse Oximetry 99 02/11/25 12:04 Oxygen Delivery Me thod Room Air 02/11/25 10:29 MDM - Female Medical Decision Making Patient is a nice 69-year-old female here for continued urinary dysuria, frequency, urgency, and suprapubic/bladder pain/spasm. Patient was found to have an E. coli ESBL UTI on her last culture and sensitivity report performed on 02/07. Sensitivities based on this report include Imipenem, Zosyn, Nitrofurantoin. I have consulted with hospitalist, infectious disease, as well as urology based on her CT scan from a few days ago showing some dilatation to the left ureter and mild left hydronephrosis. General consensus is admission for IV antibiotics. She can follow-up with urology as an outpatient. Case discussed with Dr. Lloyd who agrees with need for admission and will place admit orders. Saw patient with above midlevel patient does have E. coli ESBL UTI she has failed outpatient treatment did speak to hospitalist will admit at this time Lab Data 02/11/25 09:42 02/11/25 09:42 Laboratory Results WBC 4.31 10^3/uL (3.29-11.43) 02/11/25 09:42 RBC 3.91 10^6/uL (3.85-5.65) 02/11/25 09:42 Hgb 12.50 g/dL (11.27-16.99) 02/11/25 09:42 Hct 38.8 % (36-47) 02/11/25 09:42 MCV 99.2 fl (85-98) H 02/11/25 09:42 MCH 32.0 pg (27-33) 02/11/25 09:42 MCHC 32.2 g/dL (30-55) 02/11/25 09:42 RDW 12.7 % (12.1-15.1) 02/11/25 09:42 Plt Count 351 10^3/cmm (157-399) 02/11/25 09:42 MPV 8.9 fL (7.4-10.4) 02/11/25 09:42 Neut % (Auto) 57.1 % 02/11/25 09:42 Lymph % (Auto) 32.0 % 02/11/25 09:42 [place] % (Auto) 7.2 % 02/11/25 09:42 Eos % (Auto) 2.6 % 02/11/25 09:42 Baso % (Auto) 0.9 % 02/11/25 09:42 Neut # (Auto) 2.46 10^3/uL (1.8-7.7) 02/11/25 09:42 Lymph # (Auto) 1.4 10^3/uL (0.8-4.8) 02/11/25 09:42 [place] # (Auto) 0.3 10^3/uL (0.2-0.9) 02/11/25 09:42 Eos # (Auto) 0.1 10^3/uL (0.0-0.8) 02/11/25 09:42 Baso # (Auto) 0.0 10^3/uL (0.0-0.1) 02/11/25 09:42 Nucleated RBC % (auto) 0 % 02/11/25 09:42 Nucleated RBCs # 0.0 /100WBC 02/11/25 09:42 Sodium 139 mmol/L (136-145) 02/11/25 09:42 Potassium 4.2 mmol/L (3.5-5.1) 02/11/25 09:42 Chloride 103 mmol/L (98-107) 02/11/25 09:42 Carbon Dioxide 27 mmol/L (22-29) 02/11/25 09:42 Anion Gap 13.2 (5-19) 02/11/25 09:42 BUN 23 mg/dL (8-23) 02/11/25 09:42 Creatinine 0.6 mg/dL (0.5-0.9) 02/11/25 09:42 GFR Calculation 99.1 mL/min (90-130) 02/11/25 09:42 Glucose 78 mg/dL (65-115) 02/11/25 09:42 Calculated Osmolality 291 mOsm/kg (285-295) 02/11/25 09:42 Calcium 9.8 mg/dL (8.5-10.5) 02/11/25 09:42 Total Bilirubin 0.2 mg/dL (0.15-1.2) 02/11/25 09:42 AST 20 U/L (0-32) 02/11/25 09:42 ALT 19 U/L (0-33) 02/11/25 09:42 Alkaline Phosphatase 65 U/L (35-105) 02/11/25 09:42 Total Protein 7.1 g/dL (6.6-8.7) 02/11/25 09:42 Albumin 4.5 g/dL (3.5-5.2) 02/11/25 09:42 Globulin 2.6 g/dL (1.3-4.6) 02/11/25 09:42 Urine Color Yellow (Yellow) 02/11/25 08:35 Urine Appearance Clear (CLEAR) 02/11/25 08:35 Urine pH 6.5 (5-7) 02/11/25 08:35 Ur Specific [place] 1.004 (1.005-1.030) L 02/11/25 08:35 Urine Protein Negative (Negative) 02/11/25 08:35 Urine Glucose (UA) Negative (Normal) 02/11/25 08:35 Urine Ketones Negative (Negative) 02/11/25 08:35 Urine Blood Trace (Negative) A 02/11/25 08:35 Urine Nitrate Negative (Negative) 02/11/25 08:35 Urine Bilirubin Negative (Negative) 02/11/25 08:35 Urine Urobilinogen 0.2 mg/dL (Negative) 02/11/25 08:35 Ur Leukocyte Esterase 2+ (Negative) A 02/11/25 08:35 Urine RBC 0-2 /hpf (0-2) 02/11/25 08:35 Urine WBC 21-50 /hpf (0-5) H 02/11/25 08:35 Ur Squamous Epith Cells 0-5 /hpf (0-5) 02/11/25 08:35 Amorphous Sediment Not Reportable 02/11/25 08:35 Urine Bacteria None seen /hpf (NONE) 02/11/25 08:35 Hyaline Casts 0-4 /lpf H 02/11/25 08:35 Discharge Plan Discharge Patient Disposition: Admitted As Inpatient Clinical Impression: UTI due to extended-spectrum beta lactamase (ESBL) producing Escherichia coli Condition: Stable Coding Level of Care Code ED Game Artist for Abiola Nichols
[2025-02-11 10:25] LABS: Alanine Aminotransferase 19 U/L (0-33); Albumin Level 4.5 g/dL (3.5-5.2); Alkaline Phosphatase 65 U/L (35-105); Anion Gap 13.2 (5-19); Aspartate Amino Transferase 20 U/L (0-32); Blood Urea Nitrogen 23 mg/dL (8-23); Calcium 9.8 mg/dL (8.5-10.5); Carbon Dioxide 27 mmol/L (22-29); Chloride 103 mmol/L (98-107); Globulin 2.6 g/dL (1.3-4.6); Glucose 78 mg/dL (65-115); Osmolality Calculated 291 mOsm/kg (285-295); Potassium 4.2 mmol/L (3.5-5.1); Sodium 139 mmol/L (136-145); Total Protein 7.1 g/dL (6.6-8.7)
[2025-02-11 10:30] LABS: Glucose Urine UA Negative (Normal); Nitrate Urine Negative (Negative); Specific Gravity, Urine 1.004 (1.005-1.030)
[2025-02-11 10:35] LABS: Add Urine Microscopic? YES
[2025-02-11] MEDS: meropenem 1,000 mg SDV 1000 MG IVP ×2 (12:15→23:38)
--- NOTE | 2025-02-11 13:36 | PC.NURSE ---
Asssumed Pt. care at 1315. Pt. reports having a chronic UTI that wont clear with prescribed ABX.
--- NOTE | 2025-02-11 14:44 | P.HP_ITS ---
Providers/Chief Complaint 2 Admitting Physician: Janelle Dominguez APRN, Jabier Barkley MD Primary Care Provider: Camille Zamora DO Chief Complaint: burning when urinating History of Present Illness Keo Fay is a 69 year old female with prior medical history of UTI, RLS, lumbar stenosis, peptic ulcer, hypothyroidism, and anemia presenting with complaints of dysuria. Patient reports that since 02/04/25 she has had urinary frequency, burning upon urination, spasms, abdominal cramps, and fatigue. The next day she went to Urgent Care and was prescribed a five day course of ciprofloxacin. She did not feel symptom improvement and came to [facility] ED via private vehicle for assessment. Denies N/V/C/D, shortness of breath, chest pain, or any other modifying factors. In the ED, BP 149/83, HR 67, RR 16, T 97.6, O2 98% on room air. CBC and CMP unremarkable. Urinalysis; 2+ leukocytes, 21-50 WBC, trace blood. Will admit to Hospitalist Service for further evaluation and treatment. Review of Systems 2 Const: Denies: fever(s), chills, body aches, fatigue or malaise Card: Denies: chest pain Resp: Denies: dyspnea GI: Denies: abdominal pain, nausea, vomiting, diarrhea or change in bowel habits : Reports: dysuria, urinary frequency, urinary urgency, urinary hesitancy and nocturia; Denies: flank pain or hematuria Musc: Denies: back pain Neuro: Denies: dizziness Medications/Allergies Home Medications ?Medication ?Instructions ?Recorded ?Confirmed ?Last Taken ?Type levothyroxine 125 mcg tablet 125 mcg PO DAILY 90 days #90 tabs 05/03/24 02/11/25 02/10/25 08:00 Rx omeprazole 40 mg capsule,delayed See Rx Instructions . Route 01/18/25 02/11/25 02/10/25 Rx release .COMPLEX #90 caps ciprofloxacin HCl 500 mg tablet 500 mg PO BID UTI #10 tabs 02/05/25 02/11/25 Unknown Rx cefdinir 300 mg capsule 300 mg PO BID #14 caps 02/0702/11/25 02/11/25 08:00 Rx hydrocodone 5 mg-acetaminophen 325 1 tab PO TID PRN pa in #7 tabs 02/07/25 02/11/25 02/11/25 09:00 Rx mg tablet ondansetron 4 mg disintegrating 4 mg PO Q6H PRN nausea and 02/07/25 02/11/25 Unknown Rx tablet vomiting #14 tabs tamsulosin 0.4 mg capsule 0.4 mg PO DAILY #30 caps 02/11/25 02/10/25 Rx Allergies Allergy/AdvReac Type Severity Reaction Status Date / Time No Known Allergies Allergy Verified 02/05/25 07:45 PFSH Acute 2 PFSH: Medical History NSAID induced gastritis Impacted cerumen, right ear Hx of peptic ulcer 07/22/2021 Dr. Masterson, and gastritis on EGD, colonoscopy Acquired hypothyroidism Surgical History History of tonsillectomy History of left knee surgery History of esophagogastroduodenoscopy (EGD) Status post colonoscopy (07/22/21) Family History Family/Other Cancer Mother Cataract Hypertension Grandfather No problems noted. Denies family history of Diabetes CAD (coronary artery disease) Clotting disorder Dementia Hyperlipidemia Psychiatric illness Chronic kidney disease (CKD) Suicide Anesthesia complication Bleeding disorder Lung disease Stroke Social History Smoking and tobacco/nicotine status: former use of tobacco/nicotine Second hand smoke exposure: No Alcohol intake: never Substance/Drug Use: never Vitals/I&O/Wt Last Vital Signs Temp 97.6 F 02/11/25 08:19 Pulse 67 02/11/25 15:49 Resp 16 02/11/25 10:29 BP 149/83 02/11/25 15:49 Pulse Ox 98 02/11/25 15:49 O2 Del Method Room Air 02/11/25 17:04 Weight last 48 hrs Weight 56.699 kg Physical Exam 2 Const: COMMON NORMALS: no acute distress, average body habitus, patient oriented x3, healthy appearing, alert and well nourished GENERAL APPEARANCE: cooperative HENMT: COMMON NORMALS: normocephalic and atraumatic Eye: COMMON NORMALS: Equal, round and reactive pupils present Neck/C-Spine: COMMON NORMALS: full ROM, no lymphadenopathy and no JVD T HYROID: Thyroid normal Chest: COMMONS NORMALS: normal inspection of the chest Cardio: COMMON NORMALS: regular rate and regular rhythm GI: COMMON NORMALS: Normal to inspection, nondistended, normoactive bowel sounds present Neuro: MOTOR EXAM: 5/5 motor strength present throughout Psych: COMMON NORMALS: mental status grossly normal and cooperative SPEECH: Yes normal speech THOUGHT PROCESS: Normal thought process present J UDGEMENT: Good judgement present (Psych) Skin: COMMON NORMALS: no rashes or lesions noted Data 02/11/25 09:42 02/11/25 09:42 Micro: Microbiology 02/11/25 12:38 Blood Culture - Preliminary Blood SPECIMEN COLLECTED 02/11/25 12:35 Blood Culture - Preliminary Blood SPECIMEN COLLECTED A&P Assessment and plan 1. Acute UTI: No leukocytosis, afebrile BP 149/83, HR 67 CBC and CMP unremarkable Urinalysis; 2+ leukocytes, 21-50 WBC, trace blood IV antibiotics Floranex Push fluids Home flomax Vitamins Pain management 2. Acquired hypothyroidism: Continue home levothyroxine 3. Hx of peptic ulcer: On home omeprazole, hold Protonix started PDMP PDMP Reviewed: Not Reviewed Attestations 2 Medical Necessity Statement*: Patient not expected to stay two midnights. Antibiotics started for UTI. Diagnoses Acute UTI N39.0 Acquired hypothyroidism E03.9 Hx of peptic ulcer Z87.11
[2025-02-11] MEDS: pantoprazole 40 mg SDV IVP (15:46)
[2025-02-11] MEDS: lactobacillus 1 Tablet 1 TAB PO (17:48)
[2025-02-11] MEDS: HYDROcodone-acetaminophen 5-325 mg Tablet 1 TAB PO (21:06)
--- NOTE | 2025-02-12 | PM.CONSULT ---
Providers/Reason For Consult Consulting Physician/Specialty*: Denise Leon MD/ Infectious Disease Reason for Consult*: Complicated UTI Requesting Physician: SUELLEN Ferguson, COMMERCIAL RELIEF DRIVER Attending Physician: SUELLEN Ferguson, COMMERCIAL RELIEF DRIVER Primary Care Provider: Camille Zamora DO History of Present Illness History of Present Illness Keo Fay is a 69 year old female who developed symptoms of dysuria, increased frequency and subjective fever around 02/05 for which she visited the [facility]. She was started on po Ciprofloxacin 500mg BID however her symptoms did not improve by 02/07 which prompted a visit to the ER. Additionally she had developed flank pain. She had a CT abdomen performed on this day which showed left hydronephrosis She was discharged with po cefdinir but returned today due to persisting symptoms. I received a call from ER PA and recommended that urology opinion be obtained given persistent symptoms and noted hydronephrosis on recent CT due to clinical concern for obstructive pyelonephritis. I was updated that case was discussed with [facility] and acute intervention was considered not indicated. Urine cx has shown ESBL E.coli from 02/07. No leukocytosis, afberile thus far no h/o recurrent UTIs in the past except in october 2024 Review of Systems General: Reports: 10 or more systems reviewed and unremarkable except in HPI and below Const: Denies: fever(s), chills or body aches Eyes: Denies: change in vision, blurry vision or photophobia ENMT: Reports: hoarseness; Denies: throat pain, enlarged tonsils, odynophagia or nasal congestion Card: Denies: chest pain, palpitations, irregular heart rhythm, edema, swelling of feet/ankles, lightheadedness, pre-syncope, dyspnea on exertion or orthopnea Resp: Denies: dyspnea, productive cough, non-productive cough, wheezing, stridor, pain on inspiration, change in phlegm color, hemoptysis or chest congestion GI: Denies: abdominal pain, nausea, vomiting, hematemesis, coffee ground emesis, dysphagia, heartburn, diarrhea, constipation, GI cramping, change in stool character, hematochezia or melena : Denies: flank pain, difficulty voiding, dysuria, urinary frequency, urinary urgency, urinary hesitancy or hematuria Musc: Denies: neck pain, back pain, extremity pain, joint swelling, joint warmth or deformity Neuro: Denies: headache(s), numbness in extremities, weakness in extremities, sensory changes, difficulty walking, frequent falls, dizziness, vertigo, behavioral changes, Slurred speech present or seizure-like activity Psych: Denies: anxiety, depression, suicidal ideation or homicidal ideation Endo: Denies: polyuria, polydipsia, tired all the time, cold intolerance or hot flashes Alejandro/Lymph: Denies: easy bruising or easy bleeding Medications/Allergies Home Medications ?Medication ?Instructions ?Recorded ?Confirmed ?Last Taken ?Type levothyroxine 125 mcg tablet 125 mcg PO DAILY 90 days #90 tabs 05/03/24 02/11/25 02/10/25 08:00 Rx omeprazole 40 mg capsule,delayed See Rx Instructions .Route 01/18/25 02/11/25 02/10/25 Rx release .COMPLEX #90 caps hydrocodone 5 mg-acetaminophen 325 1 tab PO TID PRN pain #7 tabs 02/07/25 02/11/25 02/11/25 09:00 Rx mg tablet ondansetron 4 mg disintegrating 4 mg PO Q6H PRN nausea and 02/07/25 02/11/25 Unknown Rx tablet vomiting #14 tabs tamsulosin 0.4 mg capsule 0.4 mg PO DAILY #30 caps 02/07/25 02/11/25 02/10/25 Rx Allergies Allergy/AdvReac Type Severity Reaction Status Date / Time No Known Allergies Allergy Verified 02/05/25 07:45 Current Medications Generic Name Dose Route Start Last Admin Trade Name Freq PRN Reason Stop Dose Admin Hydrocodone Bitart/Acetaminophen 1 tab 02/11/25 16:11 02/11/25 21:06 Hydrocodone-Acetaminophen 5-325 Mg Tablet PO 1 tab TID PRN Administration PAIN Sodium Chloride 1,000 mls @ 100 mls/hr 02/11/25 19:15 02/11/25 20:09 Sodium Chloride 0.9% IV 100 mls/hr .Q10H VIKAS Administration Lactobacillus Acidophilus 1 tab 02/11/25 17:00 02/11/25 17:48 Lactobacillus 1 Tablet PO 1 tab BID VIKAS Administration Meropenem 1,000 mg 02/11/25 23:00 02/11/25 23:38 Meropenem 1,000 Mg Sdv IVP 1,000 mg Q8H VIKAS Administration Protocol Pantoprazole Sodium 40 mg 02/11/25 15:00 02/11/25 15:46 Pantoprazole 40 Mg Sdv IVP 40 mg Q24H VIKAS Administration PFSH Acute PFSH: Medical History NSAID induced gastritis Impacted cerumen, right ear Hx of peptic ulcer 07/22/2021 Dr. Masterson, and gastritis on EGD, colonoscopy Acquired hypothyroidism Surgical History History of tonsillectomy History of left knee surgery History of esophagogastroduodenoscopy (EGD) Status post colonoscopy (07/22/21) Family History Family/Other Cancer Mother Cataract Hypertension Grandfather No problems noted. Denies family history of Diabetes CAD (coronary artery disease) Clotting disorder Dementia Hyperlipidemia Psychiatric illness Chronic kidney disease (CKD) Suicide Anesthesia complication Bleeding disorder Lung disease Stroke Social History Smoking and tobacco/nicotine status: former use of tobacco/nicotine Second hand smoke exposure: No Alcohol intake: never Substance/Drug Use: never Vitals/I&O/Wt Last Vital Signs Temp 98 F 02/11/25 23:51 Pulse 68 02/11/25 23:51 Resp 18 02/11/25 23:51 BP 145/85 02/11/25 23:51 Pulse Ox 18 L 02/11/25 23:51 O2 Del Method Room Air 02/11/25 20:00 02/11/25 02/11/25 02/12/25 14:59 22:59 06:59 Intake Total 120 / 120 Balance 120 / 120 Weight last 48 hrs Weight 56.699 kg Weight 56.699 kg Physical Exam Narrative: Assessed via telehealth awake, alert and oriented no acute distress No focal neurological deficits denies any flank pain Data 02/12/25 05:09 02/12/25 05:09 Micro: Microbiology 02/11/25 12:38 Blood Culture - Preliminary Blood SPECIMEN COLLECTED 02/11/25 12:35 Blood Culture - Preliminary Blood SPECIMEN COLLECTED NAME: Keo Fay LOC: ER U #: [id number] AGE/SX: 69/F ROOM: RE02/07/[address]: Chirag Maynard DO : 1955 BED: DIS: FAX #: STATUS: [facility] ER TLOC: Spec #: [id number] Alvin: 02/07/25 Status: COMP Req #: [id number] Recd: 02/07/[address]: Chirag Maynard DO Src: Urine CC SpDesc: Ordered: UC Procedure Result Verified Site Urine Culture Final 02/10/25 Organism 1 Escherichia coli esbl Brusett Count >100,000 CFU/ml DAY 2 Esccolesb M.I.C. RX --------- ------ * Amoxicillin/Clavulanate 16/8 I * Ampicillin >16 R * Ampicillin/Sulbactam >16/8 R * Cefazolin >16 R * Cefepime >16 R * Ceftriaxone >2 R * Ciprofloxacin >2 R * Gentamicin >8 R * Imipenem <=1 S * Levofloxacin >4 R * Nitrofurantoin <=32 S * Trimethoprim/Sulfamethoxazole >2/38 R * Piperacillin/Tazobactam <=16 S Urine Culture Preliminary (changed) 02/09/25-847 Organism 1 Gram Negative Rods Brusett Count >100,000 CFU/ml DAY 1, RESULTS TO FOLLOW Patient: Keo Fay Unit #: [id number] : 1955 Age/Sex: 69 / F ADM Date: 02/07/25 Loc: ER Room/Bed: Attending: Ordering Provider/Ordering MD: Chirag Maynard DO Date of Service: 02/07/25 Procedure(s): CT kidney stone [id number] Accession Number(s): [id number] Report Number: [id number] PROCEDURE INFORMATION: Exam: CT Abdomen And Pelvis Without Contrast Exam date and time: 02/07/2025 9:19 PM Age: 69 years old Clinical indication: Abdominal pain; Left flank pain with hematuria; Additional info: L flank pain hematuria TECHNIQUE: Imaging protocol: Computed tomography of the abdomen and pelvis without contrast. Radiation optimization: All CT scans at this facility use at least one of these dose optimization techniques: automated exposure control; mA and/or kV adjustment per patient size (includes targeted exams where dose is matched to clinical indication); or iterative reconstruction. COMPARISON: US abdomen complete* [id number] 10/12/2021 6:37 AM RADIATION DOSE METRICS: Total DLP (mGy-cm): 337.33 FINDINGS: Lungs: The lung bases are clear. Heart: Heart size is within normal limits. There is no pericardial effusion or pericardial thickening. Liver: Small hepatic cysts are present. The liver is otherwise normal. Gallbladder and biliary ducts: The gallbladder is contracted. There is no ductal dilatation. Pancreas: The pancreas is normal. Spleen: The spleen is normal. Adrenal glands: The adrenal glands are normal. Kidneys and ureters: No renal calcifications. No right hydronephrosis. Mild left hydronephrosis and moderate dilatation of the left ureter. There is questionable urothelial thickening involving the distal left ureter best seen on coronal imaging. No calcifications identified. There is questionable focal bladder wall thickening at the left ureterovesicular junction. Stomach and bowel: Dhmi-kj-[id number] retained colonic stool. There is no large or small bowel obstruction. There is no evidence of bowel wall thickening. Appendix: No evidence of acute appendicitis. Intraperitoneal space: No inflammatory changes are identified. There is no free fluid or fluid collection seen. There is no pneumoperitoneum. Vasculature: Atherosclerotic calcifications of the aorta are present. No aneurysm is identified. Lymph nodes: No enlarged lymph nodes are identified. Urinary bladder: Questionable focal left posterior bladder wall thickening. The bladder is otherwise unremarkable. Reproductive: Multiple uterine calcifications and small masses are present most consistent with fibroid uterus. Bones/joints: No acute osseous abnormalities are seen. Degenerative changes of the lumbar spine. Severe degenerative change of the right femoroacetabular joint. Soft tissues: The soft tissues are within normal limits. CT/CT kidney stone [id number] IMPRESSION: 1. Moderate dilatation of the left ureter and mild left hydronephrosis. Questionable urothelial thickening of the distal left ureter and bladder wall thickening in the region of the left ureterovesicular junction. Differential diagnosis includes inflammatory/infectious and neoplastic processes. Recommend urological consultation. 2. No evidence of urolithiasis. 3. Other nonemergent findings above. A&P Assessment and plan 1. UTI due to extended-spectrum beta lactamase (ESBL) producing Escherichia coli: 2. Hydronephrosis, left: Plan: 69F with PMH as noted above curently admitted for UTI that has not responded to po cirpofloxacin and cefdinir as outpatient Urine cx from 02/07 with Esbl E.coli r/t both of the above abx currently on meropenem Change to ertapenem 1g iv q24h patient is clinically well appearing and no sisgns of sepsis , therefore stable for discharge from an ID standpoint with iv ertapenem 1g daily x 7 days for complicated UTI She is agreeable to come to infusion center for 7 days for daily infusion Isolate is senistive to macrobic however CT shows left hydronephrosis therefore im concerned about potential for ascending infection such as pyelonephritis in which case po macrobid is not appropriate choice Fosfomycin sensitivity added for furture reference Can discharge with iv ertapenem today after placement of midline Recommend urgent referral to urology as outpatient given left hydronephrosis and obstrcution. High change of even appropriate abx failure in the presence of anatomic obstruction. PDMP PDMP Reviewed: Not Reviewed Coding Level of Care Code Acute Code for [facility] Diagnoses UTI due to extended-spectrum beta lactamase (ESBL) producing Escherichia coli N39.0; B96.29; Z16.12 Hydronephrosis, left N13.30
[2025-02-12 04:00] VITALS: BP 129/82; PULSE 67; RESP 18; TEMP 36.7; O2SAT 95
[2025-02-12] MEDS: lactobacillus 1 Tablet 1 TAB PO (04:37)
[2025-02-12 06:57] LABS: Hematocrit 36.9 % (36-47); Hemoglobin 12.00 g/dL (11.27-16.99); Mean Corpuscular HGB Conc 32.5 g/dL (30-55); Mean Corpuscular Hemoglobin 31.7 pg (27-33); Mean Corpuscular Volume 97.6 fl (85-98); Nucleated Red Blood Cells % 0 %; Platelet Count 355 10^3/cmm (157-399); Red Blood Count 3.78 10^6/uL (3.85-5.65); White Blood Count 4.46 10^3/uL (3.29-11.43)
[2025-02-12 07:21] LABS: Anion Gap 14.0 (5-19); Blood Urea Nitrogen 18 mg/dL (8-23); Calcium 9.0 mg/dL (8.5-10.5); Carbon Dioxide 24 mmol/L (22-29); Chloride 104 mmol/L (98-107); Glucose 75 mg/dL (65-115); Magnesium 2.0 mg/dL (1.7-2.3); Osmolality Calculated 287 mOsm/kg (285-295); Potassium 4.0 mmol/L (3.5-5.1); Sodium 138 mmol/L (136-145)
[2025-02-12 07:33] VITALS: BP 134/86; PULSE 79; RESP 16; TEMP 36.3; O2SAT 96
--- NOTE | 2025-02-12 08:34 | PICC.NOTE ---
Midline placed to left basilic vein. Referred to vascular access nurse for midline placement due to need for IV antibiotics x 5 days. Risks and benefits discussed and informed consent obtained from pt. Left arm assessed with left basilic vein measuring 3.1 mm, straight, and apparent best choice for placement. Using sterile technique and MST, left basilic vein accessed x 1 stick. Mid-arm circumference measured 10 cm from left AC 29 cm. Trimmed cath 10 cm with 0 cm external length noted. Line secured with stat-lock. Insertion site covered with Biopatch and TSM. Report given to charge nurse, DIANA Abbott. Pt provided with written instructions and SASH mat for care and flushing of midline. Pt verbalizes that between her and her sister, she feels confident in giving her antibiotic at home.
[2025-02-12] MEDS: ertapenem 1,000 mg SDV 1000 MG IVP (08:37)
[2025-02-12] MEDS: magnesium sulfate premix 2 GM/50 ML PIGGYBACK IV (09:26)
--- NOTE | 2025-02-12 09:35 | PC.CHAP ---
Pastoral Care Encounter/Spiritual Assessment Type of Contact [] Declined cost estimating manager visit [] Patient/Family/Request visit [] Outpatient visit [] Follow-up visit [] Physician referral [] Code/Alert [] Routine visit [] Staff referral [] Actively dying [] Patient sleeping [] Family support [] [] Out of room [] Palliative care [] [x] Receiving care in room [] Pre-surgical visit [] Trauma [] Long length of stay [] ICU visit [] Other: Relational/Emotional Strength [] Patient feels connected with others/family/visitors/staff [] Distress [] Loneliness/isolation [] Abandonment Spirituality of Patient [] Person of Asya [] Attends Yarsanism of their Asya [] Believes in Prayer [] Reads Bible or Yarsani materials [] There are Spiritual issues to be addressed Grader Tender Interventions [] Prayer [] Active listening [] Non-anxious presence [] Spiritual/emotional support [] Crisis/trauma care [] Spiritual counseling [] Bereavement support [] Provided bereavement packet [] Provided Bible/devotional materials [] Provided toy/stuffed animal, coloring book to patient or family member [] Provided Communion [] Anointing/[place] [] Salvation [] Completed spiritual assessment [] Other: Impact on Illness or Injury [] Angry [] Fearful [] Anxious [] Often cries [] Exhaustion [] Unable to work [] Unable to attend catholic [] Unable to walk/stand [] Unable to read [] Unable to drive [] Unable to eat/drink [] Unable to sleep [] Unable to be with family [] Patient intubated [] Other: Summary Time spent with patient
--- OUTSIDE RECORDS SUMMARY | 2025-02-12 09:42 | XMS_ITS | Clinical Summary ---
Author Organization [facility] Address [address] [place] [address] Care Team Providers Care Mixer Machine Feeder Name Role Phone Unavailable Primary Care Provider [...]
--- NOTE | 2025-02-12 10:38 | P.DS_ITS ---
<Statement entered by Reese Laws MD - 02/13/25 20:25> Patient case reviewed. Agree with findings as outlined below. Discharge Providers Date of Admission: 02/11/25 12:49 Date of Discharge: February 12, 2025 Attending Provider at Admission: Janelle Dominguez APRN Attending Provider at Discharge: Janelle Dominguez, RELIEF PHARMACIST, APPLICATION ENGINEER Consults: Infectious disease consulted Primary Care Provider: Camille Zamora DO Diagnoses at Discharge Discharge Diagnosis 1. UTI due to extended-spectrum beta lactamase (ESBL) producing Escherichia co li: Details from hospital stay: 1. Acute UTI: With left hydronephrosis No leukocytosis, afebrile BP 149/83, HR 67 > today, 141/79, HR 90 CBC and CMP unremarkable Urinalysis; 2+ leukocytes, 21-50 WBC, trace blood IV antibiotics, Floranex, home flomax, vitamins Pain management 2. Hydronephrosis, left: Details from hospital stay: [facility] was consulted; acute intervention considered not indicated. 3. Acquired hypothyroidism: Details from hospital stay: Acquired hypothyroidism: Continue home levothyroxine 4. Hx of peptic ulcer: Details from hospital stay: Hx of peptic ulcer: Protonix started inpatient On home omeprazole, continue Reason for Visit Reason for Visit: burning when urinating Hospital Course Hospital Course Keo Fay is a 69 year old female with prior medical history of UTI, RLS, lumbar stenosis, peptic ulcer, hypothyroidism, and anemia presenting with complaints of dysuria. Patient reports that since 02/04/25 she has had urinary frequency, burning upon urination, spasms, abdominal cramps, and fatigue. The next day she went to Urgent Care and was prescribed a five day course of ciprofloxacin. She did not feel symptom improvement and came to [facility] ED via private vehicle for assessment. Denies N/V/C/D, shortness of breath, chest pain, or any other modifying factors. In the ED, BP 149/83, HR 67, RR 16, T 97.6, O2 98% on room air. CBC and CMP unremarkable. Urinalysis; 2+ leukocytes, 21-50 WBC, trace blood. Will admit to Hospitalist Service for further evaluation and treatment. 02/12/2025: Patient resting comfortably in bed. Family at bedside. Patient has had symptomatic improvement and will be discharging to home with IV antibiotics. She is in good spirits. Patient should return to nearest ED if symptoms worsen. Physical Exam Const: COMMON NORMALS: no acute distress, average body habitus, patient oriented x3, healthy appearing, alert and well nourished GENERAL APPEARANCE: cooperative HENMT: COMMON NORMALS: normocephalic and atraumatic HEAD & SCALP: normocephalic and atraumatic Eye: COMMON NORMALS: Equal, round and reactive pupils present PUPIL: Yes Equal, round and reactive pupils present Neck/C-Spine: COMMON NORMALS: full ROM, no lymphadenopathy, no JVD and Thyroid normal THYROID: Thyroid normal Chest: COMMONS NORMALS: normal inspection of the chest Cardio: COMMON NORMALS: no JVD, regular rate and regular rhythm RATE: regular rate RHYTHM: regular rhythm GI: COMMON NORMALS: Normal to inspection, nondistended, normoactive bowel sounds present Neuro: COMMON NORMALS: patient oriented x3 SENSORIUM/ORIENTATION: Yes alert MOTOR EXAM: 5/5 motor strength present throughout Psych: COMMON NORMALS: mental status grossly normal, Normal thought process present, cooperative and speech normal SPEECH: Yes normal speech THOUGHT PROCESS: Normal thought process present JUDGEMENT: Good judgement present (Psych) Skin: COMMON NORMALS: no rashes or lesions noted GENERAL SKIN EXAM: no rashes or lesions noted Discharge Data Studies Completed and Pending Pending at discharge Category Date Time Status Basic Metabolic Panel AM LABS Lab 02/14/25 04:00 Ordered Basic Metabolic Panel AM LABS Lab 02/13/25 04:00 Ordered Blood Culture Stat Lab 02/11/25 12:38 Results Complete Blood Count w/Auto AM LABS Lab 02/14/25 04:00 Ordered Complete Blood Count w/Auto AM LABS Lab 02/13/25 04:00 Ordered Fosfomycin Susceptibility Test Routine Lab 02/12/25 07:53 Ordered Urine Culture Stat Lab 02/11/25 08:35 Results Laboratory Results WBC 4.46 10^3/uL (3.29-11.43) 02/12/25 05:09 RBC 3.78 10^6/uL (3.85-5.65) L 02/12/25 05:09 Hgb 12.00 g/dL (11.27-16.99) 02/12/25 05:09 Hct 36.9 % (36-47) 02/12/25 05:09 MCV 97.6 fl (85-98) 02/12/25 05:09 MCH 31.7 pg (27-33) 02/12/25 05:09 MCHC 32.5 g/dL (30-55) 02/12/25 05:09 RDW 12.7 % (12.1-15.1) 02/12/25 05:09 Plt Count 355 10^3/cmm (157-399) 02/12/25 05:09 MPV 9.1 fL (7.4-10.4) 02/12/25 05:09 Neut % (Auto) 59.2 % 02/12/25 05:09 Lymph % (Auto) 28.7 % 02/12/25 05:09 Emmons % (Auto) 8.3 % 02/12/25 05:09 Eos % (Auto) 2.9 % 02/12/25 05:09 Baso % (Auto) 0.7 % 02/12/25 05:09 Neut # (Auto) 2.64 10^3/uL (1.8-7.7) 02/12/25 05:09 Lymph # (Auto) 1.3 10^3/uL (0.8-4.8) 02/12/25 05:09 Emmons # (Auto) 0.4 10^3/uL (0.2-0.9) 02/12/25 05:09 Eos # (Auto) 0.1 10^3/uL (0.0-0.8) 02/12/25 05:09 Baso # (Auto) 0.0 10^3/uL (0.0-0.1) 02/12/25 05:09 Nucleated RBC % (auto) 0 % 02/12/25 05:09 Nucleated RBCs # 0.0 /100WBC 02/12/25 05:09 Sodium 138 mmol/L (136-145) 02/12/25 05:09 Potassium 4.0 mmol/L (3.5-5.1) 02/12/25 05:09 Chloride 104 mmol/L (98-107) 02/12/25 05:09 Carbon Dioxide 24 mmol/L (22-29) 02/12/25 05:09 Anion Gap 14.0 (5-19) 02/12/25 05:09 BUN 18 mg/dL (8-23) 02/12/25 05:09 Creatinine 0.5 mg/dL (0.5-0.9) 02/12/25 05:09 GFR Calculation 122.3 mL/min (90-130) 02/12/25 05:09 Glucose 75 mg/dL (65-115) 02/12/25 05:09 Calculated Osmolality 287 mOsm/kg (285-295) 02/12/25 05:09 Calcium 9.0 mg/dL (8.5-10.5) 02/12/25 05:09 Phosphorus 3.1 mg/dL (2.5-4.5) 02/12/25 05:09 Magnesium 2.0 mg/dL (1.7-2.3) 02/12/25 05:09 Total Bilirubin 0.2 mg/dL (0.15-1.2) 02/11/25 09:42 AST 20 U/L (0-32) 02/11/25 09:42 ALT 19 U/L (0-33) 02/11/25 09:42 Alkaline Phosphatase 65 U/L (35-105) 02/11/25 09:42 Total Protein 7.1 g/dL (6.6-8.7) 02/11/25 09:42 Albumin 4.5 g/dL (3.5-5.2) 02/11/25 09:42 Globulin 2.6 g/dL (1.3-4.6) 02/11/25 09:42 Urine Color Yellow (Yellow) 02/11/25 08:35 Urine Appearance Clear (CLEAR) 02/11/25 08:35 Urine pH 6.5 (5-7) 02/11/25 08:35 Ur Specific [place] 1.004 (1.005-1.030) L 02/11/25 08:35 Urine Protein Negative (Negative) 02/11/25 08:35 Urine Glucose (UA) Negative (Normal) 02/11/25 08:35 Urine Ketones Negative (Negative) 02/11/25 08:35 Urine Blood Trace (Negative) A 02/11/25 08:35 Urine Nitrate Negative (Negative) 02/11/25 08:35 Urine Bilirubin Negative (Negative) 02/11/25 08:35 Urine Urobilinogen 0.2 mg/dL (Negative) 02/11/25 08:35 Ur Leukocyte Esterase 2+ (Negative) A 02/11/25 08:35 Urine RBC 0-2 /hpf (0-2) 02/11/25 08:35 Urine WBC 21-50 /hpf (0-5) H 02/11/25 08:35 Ur Squamous Epith Cells 0-5 /hpf (0-5) 02/11/25 08:35 Amorphous Sediment Not Reportable 02/11/25 08:35 Urine Bacteria None seen /hpf (NONE) 02/11/25 08:35 Hyaline Casts 0-4 /lpf H 02/11/25 08:35 Vitals Last Vital Signs Temp 97.4 F L 02/12/25 11:20 Pulse 90 02/12/25 11:20 Resp 16 02/12/25 11:20 BP 141/79 02/12/25 11:20 Pulse Ox 96 02/12/25 11:20 O2 Del Method Room Air 02/12/25 11:20 Discharge Plan Discharge Patient Disposition: Home Condition: Stable Prescriptions: Continued levothyroxine 125 mcg tablet 125 mcg PO DAILY 90 Days Qty: 90 1RF omeprazole 40 mg capsule,delayed release(DR/EC) See Rx Instructions .ROUTE .COMPLEX Qty: 90 0RF Dose Instruction: TAKE 1 CAPSULE BY MOUTH ONCE DAILY FOR ACID REFLUX Rx Instructions: TAKE 1 CAPSULE BY MOUTH ONCE DAILY FOR ACID REFLUX hydrocodone-acetaminophen 5-325 mg tablet 1 tab PO TID PRN (Reason: pain) Qty: 7 0RF tamsulosin 0.4 mg capsule 0.4 mg PO DAILY Qty: 30 0RF ondansetron 4 mg tablet,disintegrating 4 mg PO Q6H PRN (Reason: nausea and vomiting) Qty: 14 0RF Discontinued ciprofloxacin HCl 500 mg tablet 500 mg PO BID Qty: 10 0RF cefdinir 300 mg capsule 300 mg PO BID Qty: 14 0RF Cloth Winder OK for DC: Infectious Disease Discharge Order = DC NOW: Discharge Order (Routine); Ordered 02/12/25 Ordered By: Janelle Dominguez Referrals: Camille Zamora DO [Primary Care Provider, [facility]] Discharge Diet: Advance as tolerated and Usual diet Discharge Activity: Resume usual activity Patient Instructions: Opioid Safety, Patient Portal & Jasmin Instructions Discharge Attestations Time Spent in Discharge Care*: greater than 30 min Quality Metrics Clinical Quality Measures [ No reported AMI, CVA or VTE this stay] Coding Level of Care Code 99437 Diagnoses UTI due to extended-spectrum beta lactamase (ESBL) producing Escherichia coli N39.0; B96.29; Z16.12 Hydronephrosis, left N13.30 Acquired hypothyroidism E03.9 Hx of peptic ulcer Z87.11
[2025-02-12 11:20] VITALS: BP 141/79; PULSE 90; RESP 16; TEMP 36.3; O2SAT 96
[2025-02-12 13:19] VITALS: BP 141/79; PULSE 90; O2SAT 96
== END 2025-02-12 13:20 | disposition home or self-care (01) ==
LOC: ER 12:48 → ER IP 14:28 → MEDSURG 18:39 → ER IP 02-12 09:27 → MEDSURG 02-12 09:27
PROVIDERS: Emergency Medicine; Admitting Provider Internal Medicine; Emergency Provider Physician Assistant; PCP Family Medicine; Visit Provider Clinical Nurse Specialist Acute Care
DX: N39.0 Urinary tract infection, site not specified (principal); B96.29 Other Escherichia coli [E. coli] as the cause of diseases classified elsewhere; Z16.12 Extended spectrum beta lactamase (ESBL) resistance; N13.30 Unspecified hydronephrosis; E03.9 Hypothyroidism, unspecified; Z87.11 Personal history of peptic ulcer disease; Z79.891 Long term (current) use of opiate analgesic; K21.9 Gastro-esophageal reflux disease without esophagitis; D64.9 Anemia, unspecified; Z80.9 Family history of malignant neoplasm, unspecified; Z87.891 Personal history of nicotine dependence
CPT/HCPCS: 36415; 36569; 80048; 80053; 81001; 83735; 84100; 85025; 87040; 87077; 87086; 87181; 87186; 96361; 96365; 96375; 96376; 99285; C1751; G0378; J1335; J1885; J2185; J2470; J3475; J7030; J9999

== ENCOUNTER 2025-02-13 13:13 | Oncology outpatient (recurring) (ONCR) | payer MEDICARE, SELFPAY ==
[2025-02-13] MEDS: ertapenem 1,000 mg SDV 1000 MG IVP (13:34)
== END 2025-02-13 23:59 | disposition home or self-care (01) ==
PROVIDERS: PCP Family Medicine; Visit Provider Internal Medicine
DX: N39.0 Urinary tract infection, site not specified (principal); B96.29 Other Escherichia coli [E. coli] as the cause of diseases classified elsewhere; Z16.12 Extended spectrum beta lactamase (ESBL) resistance; Z79.899 Other long term (current) drug therapy
CPT/HCPCS: 96374; J1335